=== PATIENT | male | born 1990 | race Caucasian/White ===

== ENCOUNTER → 2020-03-18 12:40 | Outpatient (CLI) | payer OTHER, SELFPAY ==
--- NOTE | 2020-03-18 12:46 | XR_ITS ---
PROCEDURE: XR SHOULDER LT MIN 2V CLINICAL INDICATION: left shoulder pain COMPARISON: No exams were available for comparison FINDINGS: There is an ununited fracture involving the distal shaft of the clavicle. There is mild inferior displacement and inferior angulation of the distal fracture fragment. The glenohumeral joint has an unremarkable appearance. 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
== END ==
PROVIDERS: Visit Provider Orthopaedic Surgery
DX: M25.512 Pain in left shoulder (principal)
CPT/HCPCS: 73030

== ENCOUNTER 2020-05-21 18:37 | Emergency (ER) | payer OTHER, SELFPAY ==
[2020-05-21 18:49] VITALS: PULSE 80; RESP 16; TEMP 36.9; O2SAT 98; BMI 25.0
--- NOTE | 2020-05-21 19:12 | HMH.EDUTC ---
[facility] [place] Disposition Clinical Impression: Viral syndrome Disposition: Home, Self-Care Condition on Discharge: Good Instructions: DI for Viral Syndrome, Preventing the Spread of Coronavirus Discharge Instructions Additional Instructions: Drink plenty of fluids. Take tylenol or ibuprofen for pain or fever. Take the medications as directed. Follow up with your regular doctor. GO TO THE ER FOR ANY WORSENING SYMPTOMS FOLLOW THE DIRECTIONS ON THE COVID-19 HAND OUT THAT WE GAVE YOU REGARDING SELF-ISOLATION UNTIL YOU KNOW YOUR COVID-19 RESULTS Referrals: PCP,No [Primary Care Provider] - Forms: Work/School Release Time of Disposition: 19:16 Medical Decision Making - Medical Records Medical records reviewed: No: I reviewed the patient's medical records. - Kwadwo Inquiry Pt receiving controlled substance: No Vital Signs: 05/21/20 18:49 Temperature 98.5 F Temperature Source Oral Pulse Rate [Right] 80 Respiratory Rate 16 02 Sat by Pulse Oximetry 98 Oxygen Delivery Method Room Air Orders (Tests/Meds): ORDERS Category Date Time Status SARS-CoV-2, MAX Stat Lab 05/21/20 19:00 Ordered [facility] [place] HPI - General Stated complaint: headache shortness of breath, chest tightness Time Seen by Provider: 05/21/20 19:12 Limitations: No Limitations Description of Symptoms (Recalled from Triage Doc. by RN): pt c/o having a headache and advises he has been working out in the heat the past couple of days HEENT Symptoms (Recalled from RN notes): No Resp Symptoms (Recalled from RN notes): No Skin Symptoms (Recalled from RN notes): No MS Symptoms (Recalled from RN notes): No Functional Status (Recalled from RN notes): na - History of Present Illness Provider Complaint: He c/o feeling fatigued and mildly short of breath since yesterday. He denies any history of asthma. He states that he was working and got really hot yesterday and started feeling like this. Since then he has felt better. He is not sure if he has been exposed to COVID-19. - Related Data Home Medications Medication Instructions Recorded Confirmed No Known Home Medications 01/01/20 03/19/20 Allergies Allergy/AdvReac Type Severity Reaction Status Date / Time No Known Allergies Allergy Verified 03/19/20 10:21 - Worker's Comp Is this a Worker's Comp case?: No [facility] History - Hepatitis A Screen Drug use history?: No High risk sexual behaviors?: No History of sexually transmitted infection?: No Currently employed?: No Childcare worker?: No Do you have indoor plumbing?: Yes Do you have electricity?: Yes Attestation statement:: This patient has been screened for Hepatitis A risk factors. I have reviewed the patient's past medical history: Yes Medical History: Reports:: Anxiety, Depression Other Medical History: Reports: Other Other Surgeries: Yes: No Previous Surgery - Social History Smoking Status: Current every day smoker Tobacco Type: e-cigarettes # Packs/Day (cigarettes): 1 Alcohol Intake: never Occupational Status: employed Housing: house Household Members: spouse, children - Psychiatric History Pschychiatric History:: Reports:: Anxiety, Depression Family Hx:: No significant family history ROS Obtained: Yes All systems reviewed & no additional complaints - Constitutional Constitutional: Denies chills, Denies fever(s), Denies poor appetite, Reports malaise - Eyes Eyes: Denies eye discharge - ENT Ears, Nose, Mouth, and Throat: Denies dizziness, Denies otalgia, Denies sore throat - Cardiovascular Cardiovascular: Denies system reviewed and no additional complaints, except as docu - Respiratory Respiratory: Yes chest congestion, Yes cough, No dyspnea, No coughing up blood, No stridor, No wheezing - Gastrointestinal Gastrointestingal: Reports: nausea. Denies: abdominal pain, diarrhea, vomiting Physical Exam - General General appearance: alert, in no apparent distress - Head Head exam: atrauma
[2020-05-21 19:22] VITALS: BP 0/0; PULSE 85; RESP 16; TEMP 37; O2SAT 98
[2020-05-23 13:59] LABS: Covid-19 Nasal PCR Sendout Lex Not Detected
== END 2020-05-21 19:24 | disposition home or self-care (01) ==
PROVIDERS: Emergency Provider Nurse Practitioner Family
DX: B34.9 Viral infection, unspecified (principal); Z03.818 Encounter for observation for suspected exposure to other biological agents ruled out; F17.210 Nicotine dependence, cigarettes, uncomplicated; F41.8 Other specified anxiety disorders
CPT/HCPCS: 99201; U0004

== ENCOUNTER 2020-09-11 17:35 | Emergency (ER) | payer OTHER, SELFPAY ==
[2020-09-11 18:02] VITALS: BP 148/87; PULSE 93; RESP 14; TEMP 36.9; O2SAT 97; BMI 25.7
--- NOTE | 2020-09-11 18:15 | HMH.EDUTC ---
[facility] [place] Disposition Clinical Impression: Exposure to COVID-19 virus, Viral syndrome Disposition: Home, Self-Care Condition on Discharge: Good Instructions: Preventing the Spread of Coronavirus Discharge Instructions Additional Instructions: Drink plenty of fluids. Take tylenol for pain or fever. Take the medications as directed. Follow up with your regular doctor. GO TO THE ER FOR ANY WORSENING SYMPTOMS The vistiril (hydroxyzine) is for your anxiety. It will make you drowsy so don't drive after taking it. Prescriptions: hydrOXYzine pamoate [Vistaril 25mg capsule] 25 mg PO Q6HP PRN #20 cap PRN Reason: Anxiety Transmission Status: Received by [id number] Azithromycin [Z-Alan 250mg Tab*] 250 mg PO UD DOSE PK #6 tab Transmission Status: Received by [id number] Referrals: Marichuy Flores PA [Primary Care Provider] - Forms: Work/School Release Time of Disposition: 18:20 Medical Decision Making - Medical Records Medical records reviewed: No: I reviewed the patient's medical records. - Kwadwo Inquiry Pt receiving controlled substance: No Vital Signs: 09/11/20 18:02 Temperature 98.4 F Temperature Source Oral Pulse Rate [Radial] 93 H Respiratory Rate 14 Blood Pressure [Right Arm] 148/87 H Blood Pressure Mean [Right Arm] 107 Blood Pressure Source [Right Arm] Automatic Cuff Blood Pressure Position [Right Arm] Sitting 02 Sat by Pulse Oximetry 97 Oxygen Delivery Method Room Air Orders (Tests/Meds): ORDERS Category Date Time Status Covid-19 Nasal PCR ([facility]) Routine Lab 09/11/20 17:50 Received [facility] [place] HPI - General Stated complaint: wants Covid test,Sore throat,cough,weakness,Abd Pa Time Seen by Provider: 09/11/20 18:18 Mode of Arrival: Ambulatory Source of Information: Patient Limitations: No Limitations Description of Symptoms (Recalled from Triage Doc. by RN): cough, sore throat, abd pain, started 4-5 days ago. HEENT Symptoms (Recalled from RN notes): Yes Resp Symptoms (Recalled from RN notes): No Skin Symptoms (Recalled from RN notes): No MS Symptoms (Recalled from RN notes): No Functional Status (Recalled from RN notes): wnl - History of Present Illness Provider Complaint: He states that for the past 3 days he has had a scratchy sore throat, fatigue, weakness and a dry cough. He was exposed to covid about 6 days ago by his coworker. He also states that over the past 3 days he has been very anxious. He has been unable to sleep. - Related Data Previous Rx's Medication Instructions Recorded Azithromycin [Z-Alan 250mg Tab*] 250 mg PO UD DOSE PK #6 tab 09/11/20 hydrOXYzine pamoate [Vistaril 25mg 25 mg PO Q6HP PRN #20 cap 09/11/20 capsule] Allergies Allergy/AdvReac Type Severity Reaction Status Date / Time No Known Allergies Allergy Verified 03/19/20 10:21 - Worker's Comp Is this a Worker's Comp case?: No [facility] History - Hepatitis A Screen Drug use history?: Yes High risk sexual behaviors?: No History of sexually transmitted infection?: No Currently employed?: No Childcare worker?: No Do you have indoor plumbing?: Yes Do you have electricity?: Yes Attestation statement:: This patient has been screened for Hepatitis A risk factors. I have reviewed the patient's past medical history: Yes Medical History: Reports:: Anxiety, Depression Other Medical History: Reports: Other Other Surgeries: Yes: No Previous Surgery - Social History Smoking Status: Current every day smoker Tobacco Type: cigarettes # Packs/Day (cigarettes): 1 Alcohol Intake: never Substance Use Type: marijuana Last Used Substance: days (ago) Occupational Status: other Housing: house Household Members: spouse, children - Psychiatric History Pschychiatric History:: Reports:: Anxiety, Depression Family Hx:: No significant family history ROS Obtained: Yes All systems reviewed & no additional complaints - Constitutional Constitutional: Elmo Farmer
[2020-09-11 18:38] VITALS: BP 148/87; PULSE 93; RESP 14; TEMP 36.9; O2SAT 97
== END 2020-09-11 18:39 | disposition home or self-care (01) ==
PROVIDERS: Emergency Provider Nurse Practitioner Family; PCP Physician Assistant
DX: Z20.828 Contact with and (suspected) exposure to other viral communicable diseases (principal); B34.9 Viral infection, unspecified; R10.9 Unspecified abdominal pain; F41.8 Other specified anxiety disorders; F17.210 Nicotine dependence, cigarettes, uncomplicated; F12.10 Cannabis abuse, uncomplicated
CPT/HCPCS: 99201; U0003

== ENCOUNTER 2020-10-25 17:34 | Emergency (ER) | payer OTHER, SELFPAY ==
[2020-10-25 17:43] VITALS: BP 118/66; PULSE 68; RESP 18; TEMP 36.7; O2SAT 97; BMI 25.7
--- NOTE | 2020-10-25 17:44 | ED_ITS ---
[facility] [place] Impression: Exposure to COVID-19 virus Disposition: Home, Self-Care Condition on Discharge: Good Instructions: Preventing the Spread of Coronavirus Discharge Instructions Additional Instructions: You have been tested for COVID19. Please isolate yourself as if you are positive until test results received. Based on your daughter's positive test, you should quarantine for at least 7 days with a second negative test on the 5th or 6th day following exposure. Referrals: PCP,No [Primary Care Provider] - Forms: Work/School Release Time of Disposition: 17:49 Medical Decision Making - Kwadwo Inquiry Pt receiving controlled substance: No [facility] [place] - General Stated complaint: Covid test Time Seen by Provider: 10/25/20 17:44 - History of Present Illness Provider Complaint: Daughter tested positive for COVID19 yesterday. Needs COVID19 testing. Denies symptoms currently. Onset (ago): day(s) (1) Relieving factors: none Exacerbating factors: none Associated symptoms: denies other symptoms Treatments prior to arrival: none - Related Data Previous Rx's Medication Instructions Recorded Azithromycin [Z-Alan 250mg Tab*] 250 mg PO UD DOSE PK #6 tab 09/11/20 hydrOXYzine pamoate [Vistaril 25mg 25 mg PO Q6HP PRN #20 cap 09/11/20 capsule] Allergies Allergy/AdvReac Type Severity Reaction Status Date / Time No Known Allergies Allergy Verified 03/19/20 10:21 [facility] History - Hepatitis A Screen Attestation statement:: This patient has been screened for Hepatitis A risk factors. I have reviewed the patient's past medical history: Yes Medical History: Reports:: Anxiety, Depression Other Medical History: Reports: Other Other Surgeries: Yes: No Previous Surgery - Social History Smoking Status: Current every day smoker Tobacco Type: cigarettes # Packs/Day (cigarettes): 1 Alcohol Intake: never Substance Use Type: marijuana Occupational Status: other Housing: house Household Members: spouse, children - Psychiatric History Pschychiatric History:: Reports:: Anxiety, Depression Family Hx:: No significant family history ROS Obtained: Yes All systems reviewed & no additional complaints Physical Exam - General General appearance: alert, in no apparent distress - Head Head exam: normocephalic - Eye Eye exam: Present: PERRL - ENT ENT exam: Present: normal oropharynx, TM's normal bilaterally - Neck Neck exam: Present: normal inspection. Absent: lymphadenopathy - Chest Chest inspection: Present: normal inspection - Respiratory Respiratory exam: Present: normal lung sounds bilaterally - Cardiovascular Cardiovascular exam: Present: regular rate, normal rhythm - Neurological Exam Neurological exam: Present: alert, oriented X3 - Psychiatric Psychiatric exam: Present: normal affect, normal mood - Skin Skin exam: Present: warm, dry
[2020-10-25 17:54] VITALS: BP 118/66; PULSE 68; RESP 18; TEMP 36.7; O2SAT 97
== END 2020-10-25 17:55 | disposition home or self-care (01) ==
PROVIDERS: Emergency Provider Physician Assistant
DX: Z20.828 Contact with and (suspected) exposure to other viral communicable diseases (principal); F17.210 Nicotine dependence, cigarettes, uncomplicated; F41.8 Other specified anxiety disorders
CPT/HCPCS: 99201; U0003

== ENCOUNTER 2021-03-25 13:21 | Emergency (ER) | payer OTHER, SELFPAY ==
[2021-03-25 13:27] VITALS: BP 121/73; PULSE 61; RESP 14; TEMP 36.7; O2SAT 97; BMI 25.0
--- NOTE | 2021-03-25 14:14 | HMH.EDUTC ---
[facility] [place] Disposition Clinical Impression: Sinusitis Qualifiers: Sinusitis location: unspecified location Chronicity: acute Recurrence: non-recurrent Qualified Code(s): J01.90 - Acute sinusitis, unspecified Disposition: Home, Self-Care Condition on Discharge: Good Instructions: DI for Sinusitis Additional Instructions: Drink plenty of fluids. Take tylenol or ibuprofen for pain or fever. Take the medications as directed. Follow up with your regular doctor. GO TO THE ER FOR ANY WORSENING SYMPTOMS Prescriptions: Brompheniramine/Pseudoephed/Dm [Bromfed Dm Cough Syrup] 5 ml PO Q6HP PRN #240 syrup PRN Reason: Cough Transmission Status: Received by [facility] Ondansetron [Zofran 4mg ODT] 4 mg PO Q8HP PRN #12 tab.rapdis PRN Reason: Nausea Transmission Status: Received by [facility] Azithromycin [Z-Alan 250mg Tab*] 250 mg PO UD DOSE PK #6 tab Transmission Status: Received by [facility] Referrals: Provider,Referral, [Primary Care Provider] - Time of Disposition: 14:20 Medical Decision Making - Medical Records Medical records reviewed: No: I reviewed the patient's medical records. - Kwadwo Inquiry Pt receiving controlled substance: No Vital Signs: 03/25/21 13:27 03/25/21 14:21 Temperature 98.1 F 98 F Temperature Source Oral Pulse Rate 59 L Pulse Rate [Right] 61 Respiratory Rate 14 16 Blood Pressure 125/72 Blood Pressure [Right Arm] 121/73 Blood Pressure Mean [Right Arm] 89 Blood Pressure Source [Right Arm] Automatic Cuff Blood Pressure Position [Right Arm] Sitting 02 Sat by Pulse Oximetry 97 Oxygen Delivery Method Room Air [facility] [place] HPI - General Stated complaint: sinus infection possibly Time Seen by Provider: 03/25/21 14:14 Mode of Arrival: Ambulatory Source of Information: Patient Limitations: No Limitations Description of Symptoms (Recalled from Triage Doc. by RN): pt believes he has a sinus infection, he is having yellow/green snot and sinus pressure. HEENT Symptoms (Recalled from RN notes): Yes (sinus pressure and yellow/green snot) Resp Symptoms (Recalled from RN notes): No Skin Symptoms (Recalled from RN notes): No MS Symptoms (Recalled from RN notes): No Functional Status (Recalled from RN notes): na - History of Present Illness Provider Complaint: He states that for the past 2 weeks he has had sinus congestion, ear pain and sore throat. He has also had a dry cough. He denies any fever/chills/body aches. He denies any covid-19 exposure. - Related Data Previous Rx's Medication Instructions Recorded Azithromycin [Z-Alan 250mg Tab*] 250 mg PO UD DOSE PK #6 tab 09/11/20 hydrOXYzine pamoate [Vistaril 25mg 25 mg PO Q6HP PRN #20 cap 09/11/20 capsule] Azithromycin [Z-Alan 250mg Tab*] 250 mg PO UD DOSE PK #6 tab 03/25/21 Brompheniramine/Pseudoephed/Dm 5 ml PO Q6HP PRN #240 syrup 03/25/21 [Bromfed Dm Cough Syrup] Ondansetron [Zofran 4mg ODT] 4 mg PO Q8HP PRN #12 tab.rapdis 03/25/21 Allergies Allergy/AdvReac Type Severity Reaction Status Date / Time No Known Allergies Allergy Verified 03/25/21 13:35 - Worker's Comp Is this a Worker's Comp case?: No [facility] History - Hepatitis A Screen Drug use history?: No High risk sexual behaviors?: No History of sexually transmitted infection?: No Currently employed?: No Childcare worker?: No Do you have indoor plumbing?: Yes Do you have electricity?: Yes Attestation statement:: This patient has been screened for Hepatitis A risk factors. I have reviewed the patient's past medical history: Yes Medical History: Reports:: Anxiety, Depression Other Medical History: Reports: Other Other Surgeries: Yes: No Previous Surgery - Social History Smoking Status: Current every day smoker Tobacco Type: cigarettes # Packs/Day (cigarettes): 1 Alcohol Intake: never Substance Use Type: marijuana Occupational Status: other Housing: house Household Members: spouse, children - Psychiatric H
[2021-03-25 14:21] VITALS: BP 125/72; PULSE 59; RESP 16; TEMP 36.6
== END 2021-03-25 14:22 | disposition home or self-care (01) ==
PROVIDERS: Emergency Provider Nurse Practitioner Family
DX: J01.90 Acute sinusitis, unspecified (principal); F41.8 Other specified anxiety disorders; F17.210 Nicotine dependence, cigarettes, uncomplicated
CPT/HCPCS: 99202; G0463

== ENCOUNTER 2021-05-13 20:17 | Emergency (ER) | payer OTHER, SELFPAY ==
--- NOTE | 2021-05-13 20:26 | XR_ITS ---
PROCEDURE INFORMATION: Exam: XR Right Foot Exam date and time: 05/13/2021 8:26 PM Age: 30 years old Clinical indication: Injury or trauma; Sprain or strain; Right great toe and right first toe; Injury date: 05/13/2021; Injury details: Hurt toes doing martial arts; Patient HX: Pain in toes TECHNIQUE: Imaging protocol: XR Right foot. Views: 3 or more views. COMPARISON: No relevant prior studies available. FINDINGS: Bones/joints: There is a nondisplaced fracture at the base of the 1st proximal phalanx. It is intra-articular. No malalignment. Soft tissues: Normal. IMPRESSION: Great toe fracture as above
[2021-05-13 20:50] VITALS: BP 125/66; PULSE 64; RESP 16; TEMP 36.6; O2SAT 99; BMI 25.0
[2021-05-13 21:27] VITALS: BP 125/66; PULSE 64; RESP 16; TEMP 36.6; O2SAT 99
--- NOTE | 2021-05-13 21:29 | HMH.EDUTC ---
[facility] [place] Dis[place] Clinical Impression: Fractured great toe Qualifiers: Encounter type: initial encounter Fracture type: closed Phalanx: proximal Fracture alignment: nondisplaced Laterality: right Qualified Code(s): S92.414A - Nondisplaced fracture of proximal phalanx of right great toe, initial encounter for closed fracture Disposition: Home, Self-Care Condition on Discharge: Good Instructions: How to Use Crutches, How To Perform RICE (Rest, Ice, Compress, Elevate) Additional Instructions: *RICE, Rest the extremity, Ice 15-20 minutes 3-4 times daily, Compress- wear the jorge wrap as discussed as much as possible to help reduce swelling and pain, Elevate the extremity when at rest *Jorge wrap/post op shoe is for support and help control swelling, Be sure that is not to tight but not to loose either *Elevate when resting Use crutches to ambulate and get around *Ibuprofen 600-800mg every 6-8 hours as needed for pain an inflammation. If need something more can take Tylenol in between doses of Ibuprofen to help Immediately follow up with your family doctor for new or worsening of symptoms, or no noticeable improvement over the next 3-5 days Follow up with your Family Doctor Follow up with Podiatry or Orthopedics for further evaluation and treatment Referrals: Provider,Gómez, [Primary Care Provider] - Jewell Allison DPM [Staff Physician] - David Thornton MD [Staff Physician] - Time of Disposition: 21:38 Medical Decision Making - Kwadwo Inquiry Pt receiving controlled substance: No Kwadwo was queried for this patient: No Vital Signs: 05/13/21 20:50 05/13/21 21:27 Temperature 97.8 F 97.8 F Temperature Source Oral Pulse Rate 64 Pulse Rate [Right Brachial] 64 Respiratory Rate 16 16 Blood Pressure 125/66 Blood Pressure [Right Arm] 125/66 Blood Pressure Mean [Right Arm] 85 Blood Pressure Source [Right Arm] Automatic Cuff Blood Pressure Position [Right Arm] Sitting 02 Sat by Pulse Oximetry 99 Oxygen Delivery Method Room Air - Radiology Data #1 Image(s): Foot/Toes Image Reviewed: Yes I have reviewed radiologist's interpretation There is a nondisplaced fracture at the base of the 1st proximal phalanx. It is intra-articular. No malalignment. Soft tissues: Normal. IMPRESSION: Great toe fracture as above [facility] [place] HPI - General Stated complaint: [id number]@1800 r foot injury Time Seen by Provider: 05/13/21 21:29 Mode of Arrival: Ambulatory Source of Information: Patient Limitations: No Limitations Description of Symptoms (Recalled from Triage Doc. by RN): PATIENT C/O INJURY TO RIGHT FOOT YESTERDAY WHILE DOING MMA HEENT Symptoms (Recalled from RN notes): No Resp Symptoms (Recalled from RN notes): No Skin Symptoms (Recalled from RN notes): No MS Symptoms (Recalled from RN notes): Yes Functional Status (Recalled from RN notes): WNL - History of Present Illness Provider Complaint: Patient states that he was in MMA class when he kicked and felt a pop in his right great toe States that it wasnt hurting so he continued with class States that after class he was having pain when he would walk and hurt in his big toe so he come in to get checked - Related Data Previous Rx's Medication Instructions Recorded Azithromycin [Z-Alan 250mg Tab*] 250 mg PO UD DOSE PK #6 tab 09/11/20 hydrOXYzine pamoate [Vistaril 25mg 25 mg PO Q6HP PRN #20 cap 09/11/20 capsule] Azithromycin [Z-Alan 250mg Tab*] 250 mg PO UD DOSE PK #6 tab 03/25/21 Brompheniramine/Pseudoephed/Dm 5 ml PO Q6HP PRN #240 syrup 03/25/21 [Bromfed Dm Cough Syrup] Ondansetron [Zofran 4mg ODT] 4 mg PO Q8HP PRN #12 tab.rapdis 03/25/21 Allergies Allergy/AdvReac Type Severity Reaction Status Date / Time No Known Allergies Allergy Verified 03/25/21 13:35 - Worker's Comp Is this a Worker's Comp case?: No [facility] History - Hepatitis A Screen Drug use history?: No High risk sexual behaviors?: No History of sexually transmitted infect
== END 2021-05-13 21:43 | disposition home or self-care (01) ==
PROVIDERS: Emergency Provider Nurse Practitioner
DX: S92.414A Nondisplaced fracture of proximal phalanx of right great toe, initial encounter for closed fracture (principal); X50.3XXA Overexertion from repetitive movements, initial encounter; Y93.59 Activity, other involving other sports and athletics played individually; Y92.39 Other specified sports and athletic area as the place of occurrence of the external cause; F41.8 Other specified anxiety disorders; F17.210 Nicotine dependence, cigarettes, uncomplicated; Z79.899 Other long term (current) drug therapy
CPT/HCPCS: 73630; 99202; G0463

== ENCOUNTER 2022-01-29 19:42 | Emergency (ER) | payer OTHER, SELFPAY ==
[2022-01-29 19:42] VITALS: BP 122/86; PULSE 74; RESP 20; TEMP 36.8; O2SAT 100; BMI 27.8
[2022-01-29 20:12] VITALS: BP 122/86; PULSE 65; O2SAT 97
--- NOTE | 2022-01-29 20:17 | CT_ITS ---
PROCEDURE INFORMATION: Exam: CT Abdomen And Pelvis With Contrast Exam date and time: 01/29/2022 8:52 PM Age: 31 years old Clinical indication: Abdominal pain; Generalized; Additional info: Abd pain TECHNIQUE: Imaging protocol: Computed tomography of the abdomen and pelvis with contrast. Radiation optimization: All CT scans at this facility use at least one of these dose optimization techniques: automated exposure control; mA and/or kV adjustment per patient size (includes targeted exams where dose is matched to clinical indication); or iterative reconstruction. Contrast material: ISOVUE; Contrast volume: 75 ml; Contrast route: IV; COMPARISON: CT ABDOMEN PELVIS W CON 09/05/2019 6:44 PM FINDINGS: Liver: Normal. No mass. Gallbladder and bile ducts: No calcified stones. No ductal dilation. Pancreas: Normal enhancement. No ductal dilation. Spleen: No splenomegaly. Adrenal glands: No mass. Kidneys and ureters: No hydronephrosis. Stomach and bowel: Mildly distended and equivocally thickened loops of small bowel distally extending into the pelvis measuring up to 2.6 cm in transverse dimension with trace adjacent fluid. Appendix: No evidence of appendicitis. Intraperitoneal space: No free air. No significant fluid collection. Vasculature: No abdominal aortic aneurysm. Lymph nodes: No enlarged lymph nodes. Urinary bladder: No acute abnormality. Reproductive: No acute abnormality. Bones/joints: No acute fracture. Soft tissues: No soft tissue swelling. IMPRESSION: Mildly distended and equivocally thickened loops of small bowel distally extending into the pelvis measuring up to 2.6 cm in transverse dimension with trace adjacent fluid suggesting enteritis and potentially developing partial obstruction. Clinical correlation recommended.
[2022-01-29 20:27] LABS: Basophils # 0.2 K/mm3 (0-0.2); Basophils % 1.6 % (0.1-2.0); Eosinophils # 0.1 K/mm3 (0.0-0.4); Eosinophils % 1.5 % (0.1-12.0); Lymphocytes # 2.4 K/mm3 (0.7-4.5); Lymphocytes % 25.5 % (10-50); Mean Corpuscular Hemoglobin 30.5 pg (27.0-31.2); Mean Corpuscular Volume 89.7 fl (80-94); Mean Platelet Volume 8.4 fl (7.4-10.4); Monocytes # 0.6 K/mm3 (0.1-1.0); Monocytes % 6.3 % (1.7-9.3); Neutrophils # 6.2 K/mm3 (1.8-7.8); Platelet Count 133 K/mm3 (142-424); Red Blood Count 5.24 M/mm3 (4.60-6.20); Red Cell Distribution Width 13.6 % (11.5-17.5); White Blood Count 9.5 K/mm3 (4.8-10.8)
[2022-01-29 20:27] LABS: Microscopic, Urine URINE MICROSCOPIC (MICROSCOPIC)
[2022-01-29 20:29] LABS: Appearance,Urine CLEAR (Clear); Bilirubin,Urine Negative (Negative); Blood, Urine Negative (Negative); Color,Urine YELLOW (Yellow); Glucose,Urine (UA) Negative (Negative); Ketones,Urine Negative (Negative); Leukocyte Esterase,Urine Negative (Negative); Nitrate,Urine Negative (Negative); PH,Urine 7.5 (5.0-8.5); Protein,Urine Negative (Negative); Urobilinogen,Urine 0.2 EU/dl (0.2)
[2022-01-29 20:30] VITALS: BP 123/72; PULSE 74; O2SAT 97
[2022-01-29 20:31] LABS: Chloride 106 mmol/L (98-107); Potassium 3.6 mmoL/L (3.5-5.1); Sodium 139 mmol/L (136-145)
[2022-01-29 20:33] LABS: Amylase 67 U/L (30-110); Blood Urea Nitrogen 13 mg/dl (9-20); Creatinine Clearance Estimated 158 mL/min (50-200); Estimated Glomerular Filt Rate 99 ml/min (>60); GFR (African American) 120 ML/MIN (>60)
[2022-01-29 20:34] LABS: Alanine Aminotransferase 35 U/L (12-78); Albumin Level 4.3 g/dl (3.5-5.0); Albumin/Globulin Ratio 1.4 (1.1-1.8); Alkaline Phosphatase 69 U/L (38-126); Anion Gap 9.6 mEq/L (5-15); Aspartate Amino Transferase 35 U/L (17-59); Bilirubin,Total 0.5 mg/dl (0.2-1.3); Calcium 8.8 mg/dl (8.4-10.2); Carbon Dioxide 27 mmol/L (22.0-30.0); Glucose 95 mg/dl (74-100); Lipase 66 U/L (23-300); Total Protein,Serum 7.3 g/dl (6.3-8.2)
[2022-01-29 20:37] LABS: Squamous Epithelial Cell,Urine Occasional #/hpf (0-5); WBC,Urine Occasional #/hpf (0-3)
--- NOTE | 2022-01-29 21:35 | HMH.EDNVD ---
ED Disposition Clinical Impression: Enteritis Disposition: Home, Self-Care Condition on Discharge: Good Instructions: DI for Enteritis Additional Instructions: fluids and see pcp if needed Referrals: Provider,Referral, [Primary Care Provider] - - Critical Care Critical Care Time: No Attestation: On 01/29/22, the high probability of a clinically significant, sudden or life threatening deterioration of the following system(s) required my full and direct attention, intervention and personal management. The time I documented below is in addition to time spent performing reported procedures but includes the following listed in this critical care notation. Medical Decision Making - Medical Records Medical records reviewed: Yes: I reviewed the patient's medical records. - Kwadwo Inquiry Pt receiving controlled substance: No Vital Signs: 01/29/22 19:42 01/29/22 20:12 01/29/22 20:30 Temperature 98.2 F Temperature Source Oral Pulse Rate 65 74 Pulse Rate [Right Radial] 74 Respiratory Rate 20 Blood Pressure 122/86 123/72 Blood Pressure [Right Arm] 122/86 Blood Pressure Mean [Right Arm] 98 Blood Pressure Source [Right Arm] Automatic Cuff Blood Pressure Position [Right Arm] Supine 02 Sat by Pulse Oximetry 100 97 97 Oxygen Delivery Method Room Air 01/29/22 22:14 Temperature Temperature Source Pulse Rate 63 Pulse Rate [Right Radial] Respiratory Rate Blood Pressure 105/61 L Blood Pressure [Right Arm] Blood Pressure Mean [Right Arm] Blood Pressure Source [Right Arm] Blood Pressure Position [Right Arm] 02 Sat by Pulse Oximetry 99 Oxygen Delivery Method - Lab Data Lab results reviewed: Yes: I reviewed the patient's lab results. Lab Results 01/29/22 19:50: Urine Color Yellow, Urine Appearance Clear, Urine pH 7.5, Ur Specific [place] 1.020, Urine Protein Negative, Urine Glucose (UA) Negative, Urine Ketones Negative, Urine Blood Negative, Urine Nitrate Negative, Urine Bilirubin Negative, Urine Urobilinogen 0.2, Ur Leukocyte Esterase Negative, Urine RBC None, Urine WBC Occasional, Ur Squamous Epith Cells Occasional, Urine Bacteria None 01/29/22 20:00: WBC 9.5, RBC 5.24, Hgb 16.0, Hct 47.0, MCV 89.7, MCH 30.5, MCHC 34.0, RDW 13.6, Plt Count 133 L, MPV 8.4, Neut % (Auto) 65.0, Lymph % (Auto) 25.5, [place] % (Auto) 6.3, Eos % (Auto) 1.5, Baso % (Auto) 1.6, Neut # (Auto) 6.2, Lymph # (Auto) 2.4, [place] # (Auto) 0.6, Eos # (Auto) 0.1, Baso # (Auto) 0.2 01/29/22 20:00: Sodium 139, Potassium 3.6, Chloride 106, Carbon Dioxide 27, Anion Gap 9.6, BUN 13, Creatinine 0.90, Estimated Creat Clear 158, Estimated GFR 99, Est GFR ( Amer) 120, Glucose 95, Calcium 8.8, Total Bilirubin 0.5, AST 35, ALT 35, Alkaline Phosphatase 69, Total Protein 7.3, Albumin 4.3, Globulin 3.0, Albumin/Globulin Ratio 1.4, Amylase 67, Lipase 66 Result diagrams: 01/29/22 20:00 01/29/22 20:00 Orders (Tests/Meds): ED MEDICATIONS Generic Name Dose Route Start Last Admin Trade Name Freq PRN Reason Stop Dose Admin Sodium Chloride 1,000 mls @ 999 mls/hr 01/29/22 22:00 01/29/22 21:48 Sod Chlor 0.9% 1000ml Bag IV 01/29/22 23:00 999 mls/hr .Q1H1M SHANNAN Administration Sodium Chloride 8 ml 01/29/22 20:20 Sodium Chloride 0.9% 10ml Vial IV 02/28/22 20:19 NEEDED PRN dilute pepcid Discontinued Medications Generic Name Dose Route Start Last Admin Trade Name Freq PRN Reason Stop Dose Admin Famotidine 20 mg 01/29/22 20:20 01/29/22 20:37 Famotidine 20mg/2ml Vial IV 01/29/22 20:21 20 mg ONCE ONE Administration Sodium Chloride 1,000 mls @ 999 mls/hr 01/29/22 20:30 01/29/22 20:37 Sod Chlor 0.9% 1000ml Bag IV 01/29/22 21:30 999 mls/hr .Q1H1M SHANNAN Administration Iopamidol 75 ml 01/29/22 21:01 01/29/22 21:02 Iopamidol-370 (76%);100ml Bottle IV 01/29/22 21:02 75 ml ONCE ONE Administration Ketorolac Tromethamine 30 mg 01/29/22 20:20 01/29/22 20:44 Ketorolac 30mg
[2022-01-29 22:14] VITALS: BP 105/61; PULSE 63; O2SAT 99
[2022-01-29 23:05] VITALS: BP 106/63; PULSE 79; RESP 18; TEMP 36.8; O2SAT 99
== END 2022-01-29 23:12 | disposition home or self-care (01) ==
PROVIDERS: Emergency Provider Emergency Medicine
DX: K52.9 Noninfective gastroenteritis and colitis, unspecified (principal); F32.A Depression, unspecified; F41.9 Anxiety disorder, unspecified; F17.210 Nicotine dependence, cigarettes, uncomplicated
CPT/HCPCS: 74177; 80053; 81001; 82150; 83690; 85025; 96361; 96365; 96366; 96374; 96375; 99285; J2405; Q9967

== ENCOUNTER 2022-06-22 06:47 | Emergency (ER) | payer OTHER, SELFPAY ==
[2022-06-22 06:50] VITALS: BP 155/81; PULSE 65; RESP 17; TEMP 36.8; O2SAT 99; BMI 25.0
[2022-06-22 07:30] VITALS: BP 138/84; PULSE 62; O2SAT 97
[2022-06-22 08:00] VITALS: BP 144/86; PULSE 62; O2SAT 98
[2022-06-22 08:30] VITALS: BP 144/88; PULSE 54; O2SAT 98
--- NOTE | 2022-06-22 09:31 | CT_ITS ---
PROCEDURE INFORMATION: Exam: CT Chest Without Contrast; Diagnostic Exam date and time: 06/22/2022 7:11 AM Age: 31 years old Clinical indication: Intercostal; Patient HX: Rib pain TECHNIQUE: Imaging protocol: Diagnostic computed tomography of the chest without contrast. Radiation optimization: All CT scans at this facility use at least one of these dose optimization techniques: automated exposure control; mA and/or kV adjustment per patient size (includes targeted exams where dose is matched to clinical indication); or iterative reconstruction. COMPARISON: No relevant prior studies available. FINDINGS: Lungs: There is a 6 mm right middle lobe subpleural nodule on series 3, image 56. There is a 5 mm subpleural nodule in the left upper lobe on series 3, image 16. Additional smaller nodules are seen. No focal airspace consolidation. Pleural spaces: Unremarkable. No pneumothorax. No pleural effusion. Heart: Coronary artery calcification is absent. Mediastinal space: Residual thymic tissue is seen in the anterior mediastinum. Lymph nodes: Numerous but small axillary lymph nodes are seen bilaterally. Vasculature: Unremarkable. No aortic aneurysm. Bones/joints: Unremarkable. No acute fracture. Soft tissues: Unremarkable. IMPRESSION: Multiple small pulmonary nodules are seen measuring up to 6 mm. If the patient does not have known cancer, follow up should be based on clinical information because of the low risk of cancer in this age group. (Reference: Rj) REFERENCES: Rj Joseph et al. Guidelines for Management of Incidental Pulmonary Nodules Detected on CT Images: From the Fleischner Society 2017. Radiology. 2017;284(1):228-243.
--- NOTE | 2022-06-22 09:37 | CT_ITS ---
FINAL REPORT TECHNIQUE: Pre-and postcontrast images of the abdomen were performed by computed tomography. Extensive 3-D reconstruction images were performed. A CTA was performed. This study was performed with techniques to keep radiation doses as low as reasonably achievable (ALARA). Individualized dose reduction techniques using automated exposure control or adjustment of mA and/or kV according to the patient's size were employed. CLINICAL HISTORY: LUQ pain COMPARISON: January 29, 2022 FINDINGS: ABDOMEN: The lung bases are clear. Precontrast images demonstrate no evidence of nephrolithiasis. No adrenal masses are identified. The liver, spleen and pancreas are unremarkable. PELVIS: There is no pelvic mass or inflammation. The urinary bladder is present. There is a large amount of stool is seen in the base of cecum. There are no abnormally dilated loops of bowel seen. CTA: The abdominal aorta is proper caliber. The SMA, celiac axis, and LOR[place]TA are patent. There is no significant stenosis or calcification. The renal arteries are patent bilaterally. IMPRESSION: No evidence of renal vascular hypertension or significant renal artery stenosis. Reviewed, Interpreted and Dictated by Darryn Garza MD Transcribed by Annalise Cr Authenticated and [facility]
--- NOTE | 2022-06-22 09:37 | CT_ITS ---
FINAL REPORT CLINICAL HISTORY: pleuritic pain L side FINDINGS: Thin section axial CT images of the chest were obtained with contrast. 3D reformatted images were also obtained. This study was performed with techniques to keep radiation doses as low as reasonably achievable (ALARA). Individualized dose reduction techniques using automated exposure control or adjustment of mA and/or kV according to the patient's size were employed. There is no evidence of pulmonary embolism. There is no evidence of thoracic aortic aneurysm or dissection. There is soft tissue in the anterior mediastinum probably related to residual thymic tissue. The mediastinal vasculature is well opacified. There is no pulmonary artery filling defects. There are multiple bilateral axillary lymph nodes. The individual nodes measure up to 1.5 cm bilaterally. The nodes are larger and more numerous than typically seen. There is no pneumothorax. The lung bases are clear. IMPRESSION: No evidence of pulmonary embolism. No mass or localized inflammatory process. Multiple bilateral axillary lymph nodes, larger and more numerous than typically seen. Reviewed, Interpreted and Dictated by Darryn Garza MD Transcribed by Annalise Cr Authenticated and [facility]
[2022-06-22 09:39] VITALS: BMI 25.0
--- NOTE | 2022-06-22 09:45 | PC.NURSE ---
IV established and blood sent to the lab
[2022-06-22 10:08] LABS: Alanine Aminotransferase 40 U/L (12-78); Albumin Level 4.3 g/dl (3.5-5.0); Albumin/Globulin Ratio 1.3 (1.1-1.8); Alkaline Phosphatase 73 U/L (38-126); Anion Gap 7.6 mEq/L (5-15); Aspartate Amino Transferase 120 U/L (17-59); Bilirubin,Total 0.2 mg/dl (0.2-1.3); Blood Urea Nitrogen 11 mg/dl (9-20); Calcium 9.5 mg/dl (8.4-10.2); Carbon Dioxide 30 mmol/L (22.0-30.0); Chloride 106 mmol/L (98-107); Creatinine Clearance Estimated 160 mL/min (50-200); Estimated Glomerular Filt Rate 114 ml/min (>60); GFR (African American) 137 ML/MIN (>60); Globulin 3.4 g/dL (1.3-3.2); Glucose 100 mg/dl (74-100); Potassium 4.6 mmoL/L (3.5-5.1); Sodium 139 mmol/L (136-145); Total Protein,Serum 7.7 g/dl (6.3-8.2)
[2022-06-22 10:10] LABS: Basophils # 0.1 K/mm3 (0-0.2); Basophils % 0.9 % (0.1-2.0); Eosinophils # 0.2 K/mm3 (0.0-0.4); Hemoglobin 15.6 g/dL (14.1-18.0); Lymphocytes # 2.4 K/mm3 (0.7-4.5); Lymphocytes % 38.6 % (10-50); Mean Corpuscular HGB Conc 31.8 g/dL (31.8-35.4); Mean Corpuscular Hemoglobin 29.6 pg (27.0-31.2); Mean Corpuscular Volume 92.9 fl (80-94); Mean Platelet Volume 8.3 fl (7.4-10.4); Monocytes # 0.4 K/mm3 (0.1-1.0); Monocytes % 6.7 % (1.7-9.3); Neutrophils # 3.1 K/mm3 (1.8-7.8); Neutrophils % 50.9 % (37.0-80.0); Platelet Count 161 K/mm3 (142-424); Red Blood Count 5.27 M/mm3 (4.60-6.20); Red Cell Distribution Width 13.5 % (11.5-17.5); White Blood Count 6.2 K/mm3 (4.8-10.8)
--- NOTE | 2022-06-22 10:20 | PC.NURSE ---
Late entry of triage per downtime procedures. Triage completed by SHELDON Kamara.
--- NOTE | 2022-06-22 10:45 | PC.NURSE ---
rounded on pt room. asked if pt had any needs. No needs at this time.
--- NOTE | 2022-06-22 12:30 | PC.NURSE ---
contacted radiology to check on status of CT reports, spoke with oscar, states she will have staff check on it and call me back
--- NOTE | 2022-06-22 12:40 | PC.NURSE ---
gave preliminary reports of CTA chest to ER MD at this time
--- NOTE | 2022-06-22 12:56 | HMH.EDGENADL ---
Discharge Plan Disposition Patient Disposition: Home, Self-Care Condition: Good Chief Complaint: PAIN Prescriptions Prescriptions: New ibuprofen 800 mg tablet 800 mg PO Q8HP PRN (Reason: moderate pain ) Qty: 15 0RF No Action azithromycin 250 MG tablet 250 mg PO UD DOSE PK Qty: 6 0RF Rx Instructions: Take two (2) tablets today, then one (1) tablet days #2 thru #5 epmcnreyljphjjx-flqaqxyxd-BZ 118 ML syrup 5 ml PO Q6HP PRN (Reason: Cough) Qty: 240 0RF ondansetron 4 MG tablet,disintegrating 4 mg PO Q8HP PRN (Reason: Nausea) Qty: 12 0RF azithromycin 250 MG tablet 250 mg PO UD DOSE PK Qty: 6 0RF Rx Instructions: Take two (2) tablets today, then one (1) tablet days #2 thru #5 hydroxyzine pamoate 25 MG capsule 25 mg PO Q6HP PRN (Reason: Anxiety) Qty: 20 0RF Referrals Referrals: Provider,Referral, MD [Primary Care Provider] - Enter time for follow up Activity Restrictions/Add. Instructions Additional Instructions/Restrictions: Ibuprofen as needed for pain. Follow-up with primary care provider if not improved in 4 to 5 days. Clinical Impressions Clinical Impression: Chest wall muscle strain Discharge ED Provider: Luiz Jolly Adult [facility] General Chief complaint: PAIN Stated complaint: left side pain Time Seen by Provider: 06/22/22 08:00 Mode of Arrival: Ambulatory Source of Information: Patient Limitations: No Limitations Description of Symptoms (Recalled from ER Triage Doc. by RN): pt to ed c/o left lower rib pain. 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 pt states he was kickboxing yesterday with a punching bag and started having left rib pain. pt reports the pain is worse on inspiration and movement. no known injury reported by pt. pt denies trauma or falls. Related Data Previous Rx's Medication Instructions Recorded azithromycin 250 mg tablet 250 mg PO UD DOSE PK #6 tabs 09/11/20 hydroxyzine pamoate 25 mg capsule 25 mg PO Q6HP PRN Anxiety #20 caps 09/11/20 azithromycin 250 mg tablet 250 mg PO UD DOSE PK #6 tabs 03/25/21 vahssskkmeqkkki-rgbvxlylcbzpnwa-RK 5 ml PO Q6HP PRN Cough ##240 03/25/21 2 mg-30 mg-10 mg/5 mL oral syrup ondansetron 4 mg disintegrating 4 mg PO Q8HP PRN Nausea ##12 03/25/21 tablet ibuprofen 800 mg tablet 800 mg PO Q8HP PRN moderate pain 06/22/22 #15 tabs Allergies Allergy/AdvReac Type Severity Reaction Status Date / Time No Known Allergies Allergy Verified 03/25/21 13:35 PFSH PFSH Social History Smoking Status: Never smoker second hand exposure: Yes alcohol intake: never substance use type: marijuana current occupational status: other household members: spouse and children housing: house ROS Obtained: Yes All systems reviewed & no additional complaints except as documented Physical Exam General General appearance: alert and in no apparent distress Respiratory Respiratory exam: Present normal lung sounds bilaterally; Absent respiratory distress, wheezes or accessory muscle use Cardiovascular Cardiovascular exam: Present regular rate and normal rhythm Neurological Exam Neurological exam: Present alert, oriented X3 and normal gait; Absent motor sensory deficit Medical Decision Making Kwadwo Inquiry Pt receiving controlled substance: No Vital Signs: 06/22/22 06:50 06/22/22 13:12 06/22/22 07:30 Temperature 98.2 F 98.2 F Temperature Source Oral Pulse Rate 52 L 62 Pulse Rate [Left Radial] 65 Respiratory Rate 17 16 Blood Pressure 136/86 138/84 Blood Pressure [Right Arm] 155/81 H Blood Pressure Mean [Right Arm] 105 Blood Pressure Source Automatic Cuff Blood Pressure Position Sitting Sitting 02 Sat by Pulse Oximetry 99 97 Oxygen Delivery Method Room Air Room Air Room Air 06/22/22 08:00 06/22/22 08:30 Temperature Temperature Source Pulse Rate 62 54 L Pulse Rate [Left Radial] Respiratory Rate Blood Pressure 144/86 H 144/88 H Blood Pressure [R
[2022-06-22 13:12] VITALS: BP 136/86; PULSE 52; RESP 16; TEMP 36.8; O2SAT 100
== END 2022-06-22 13:12 | disposition home or self-care (01) ==
PROVIDERS: Emergency Provider Emergency Medicine
DX: R07.89 Other chest pain (principal)
CPT/HCPCS: 71250; 71275; 74174; 80053; 85025; 99285; Q9967

== ENCOUNTER 2022-11-01 10:47 | Emergency (ER) | payer OTHER, SELFPAY ==
[2022-11-01 11:05] VITALS: BP 130/68; PULSE 71; RESP 19; TEMP 36.6; O2SAT 97; BMI 25.7
--- NOTE | 2022-11-01 11:12 | EXP.UTC ---
Discharge Plan Disposition Patient Disposition: Home, Self-Care Condition: Good Prescriptions Prescriptions: New benzonatate 100 mg capsule 100 mg PO TID PRN (Reason: cough) Qty: 30 0RF azithromycin [Zithromax Z-Alan] 250 mg tablet See Rx Instructions .ROUTE .COMPLEX 5 Days Qty: 6 0RF Rx Instructions: For 250 mg dose pack: take 500 mg today (day 1), then 250 mg for 4 days (days 2-5) methylprednisolone [Medrol (Alan)] 4 mg tablets,dose pack See Rx Instructions .Route .COMPLEX 6 Days Qty: 21 0RF Rx Instructions: taper pack; Referrals Follow up/Referrals: Perfecto Adam MD [Primary Care Provider] - See instructions Activity Restrictions/Add. Instructions Additional Instructions/Restrictions: *Monitor Temp, Over the counter Motrin or Tylenol as directed/as needed Tylenol every 4 hours and Motrin every 6 hours (as long as your family doctor has told you that you can take it) for fever or pain. and straight to ER if unable to lower temp less than 101.0 after medication given *Warm salt water gargles may help to soothe the throat *Throat Lozenges? *Warm fluids like tea with honey may help to soothe the throat? *Sleep elevated *Humidifier/Vaporizer Your throat swab was sent for culture. Those results are typically sent to your primary care. Be sure to follow up in 2-3 days with your family doctor/primary care physician if no improvement so they can review those result and treat if necessary. If you don?t have a primary care doctor, I recommend you get one but in the mean time, you will have to return to a walk in clinic Follow up IMMEDIATELY for new or worsening symptoms or no Noticeable improvement over the next 48-72 hours. 911 for difficulty breathing or swallowing Clinical Impressions Clinical Impression: Sinusitis Stand Alone Forms Stand Alone Forms: Work/School Release Instructions Patient Instructions: DI for Sinusitis, Sinusitis Discharge ED Provider: Leighann Camara [facility] [place] H[place] General Stated complaint: Persistant cough Time Seen by Provider: 11/01/22 11:05 History of Present Illness Provider Complaint: Patient states that he has been sick on and off for 2 weeks States that he has been having sore throat, cough, sinus congestion and drainage feels like it is running in the back of his throat and had a little fever yesterday States today not feeling any better so he came in to get checked Related Data Previous Rx's Medication Instructions Recorded azithromycin 250 mg tablet See Rx Instructions PO .COMPLEX 5 11/01/22 (Zithromax Z-Alan) days #6 tabs benzonatate 100 mg capsule 100 mg PO TID PRN cough #30 caps 11/01/22 methylprednisolone 4 mg tablets in See Rx Instructions .Route 11/01/22 a dose pack (Medrol (Alan)) .COMPLEX 6 days #21 tabs Allergies Allergy/AdvReac Type Severity Reaction Status Date / Time No Known Allergies Allergy Verified 08/24/22 14:25 [facility] Disclaimer: The information contained in this section may have been updated after the patient was seen, as this information can be updated by other users. Medical History (Updated 11/01/22 @ 11:36 by Leighann Camara APRN) Bronchitis History of smoking 10-25 pack years Multiple lung nodules on CT Wheezing without diagnosis of asthma Surgical History (Updated 08/24/22 @ 14:31 by Connie Muñoz) No history of previous surgery Family History Other No significant family history Social History (Updated 08/24/22 @ 14:28 by Connie Muñoz) Smoking Status: Former smoker smoking status stop date: 2019 second hand exposure: Yes alcohol intake: never substance use type: marijuana current occupational status: other Travel in the last 8 weeks: Inside the [place] household members: spouse and children housing: house ROS Obtained: Yes All systems reviewed & no additional complaints except as documented and Ye
[2022-11-01 11:35] LABS: UTC Influenza A Antigen Negative (Negative); UTC Strep Screen (Rapid) Negative (Negative)
[2022-11-01 11:36] LABS: UTC Influenza B Antigen Negative (Negative)
[2022-11-01 11:38] VITALS: BP 130/68; PULSE 71; RESP 19; TEMP 36.6; O2SAT 97
== END 2022-11-01 11:37 | disposition home or self-care (01) ==
PROVIDERS: Emergency Provider Nurse Practitioner; PCP Emergency Medicine
DX: J32.9 Chronic sinusitis, unspecified (principal)
CPT/HCPCS: 87804; 87880; 99212; 99213; G0463

== ENCOUNTER 2022-11-21 17:01 | Emergency (ER) | payer OTHER, SELFPAY ==
--- NOTE | 2022-11-21 17:14 | PC.NURSE ---
HODA PULIDO at for pt drual
--- NOTE | 2022-11-21 17:17 | CT_ITS ---
PROCEDURE INFORMATION: Exam: CT Abdomen And Pelvis With Contrast Exam date and time: 11/21/2022 5:47 PM Age: 32 years old Clinical indication: Abdominal pain; Generalized; Additional info: Llq pain, blood in stool TECHNIQUE: Imaging protocol: Computed tomography of the abdomen and pelvis with contrast. Radiation optimization: All CT scans at this facility use at least one of these dose optimization techniques: automated exposure control; mA and/or kV adjustment per patient size (includes targeted exams where dose is matched to clinical indication); or iterative reconstruction. Contrast material: ISOVUE; Contrast volume: 75 ml; Contrast route: IV; COMPARISON: CT ABDOMEN PELVIS W CON 01/29/2022 8:52 PM FINDINGS: Liver: Normal. No mass. Gallbladder and bile ducts: Normal. No calcified stones. No ductal dilation. Pancreas: Normal. No ductal dilation. Spleen: Normal. No splenomegaly. Adrenal glands: Normal. No mass. Kidneys and ureters: Normal. No hydronephrosis. Stomach and bowel: Unremarkable. No obstruction. No mucosal thickening. Appendix: No evidence of appendicitis. Intraperitoneal space: Unremarkable. No free air. No significant fluid collection. Vasculature: Unremarkable. No abdominal aortic aneurysm. Lymph nodes: Unremarkable. No enlarged lymph nodes. Urinary bladder: Unremarkable as visualized. Reproductive: Unremarkable as visualized. Bones/joints: Unremarkable. No acute fracture. Soft tissues: Unremarkable. IMPRESSION: No acute findings.
[2022-11-21 17:20] VITALS: BP 141/89; PULSE 90; RESP 20; TEMP 36.8; O2SAT 96; BMI 26.4
--- NOTE | 2022-11-21 17:25 | HMH.EDGENADL ---
Discharge Plan Disposition Patient Disposition: Home, Self-Care Condition: Good Prescriptions Prescriptions: New polyethylene glycol 3350 [Miralax] 17 gram/dose powder 17 g PO DAILY Qty: 119 0RF No Action benzonatate 100 mg capsule 100 mg PO TID PRN (Reason: cough) Qty: 30 0RF azithromycin [Zithromax Z-Alan] 250 mg tablet See Rx Instructions .ROUTE .COMPLEX 5 Days Qty: 6 0RF Rx Instructions: For 250 mg dose pack: take 500 mg today (day 1), then 250 mg for 4 days (days 2-5) methylprednisolone [Medrol (Alan)] 4 mg tablets,dose pack See Rx Instructions .Route .COMPLEX 6 Days Qty: 21 0RF Rx Instructions: taper pack; Referrals Follow up/Referrals: Provider,Referral, [Primary Care Provider] - See instructions Activity Restrictions/Add. Instructions Additional Instructions/Restrictions: You were evaluated in the emergency department today. Please picking supervisor your prescription for MiraLAX and take it daily as prescribed. Follow-up with your primary care provider over the next 48 hours. Return to the emergency department for any new or worsening symptoms. Clinical Impressions Clinical Impression: BRBPR (bright red blood per rectum), Acute constipation, Hemorrhoid Instructions Patient Instructions: DI for Hemorrhoids, DI for Constipation, DI for Acute Abdominal Pain, DI for Rectal Bleeding Discharge ED Provider: Arlene Cook General Adult HPI General Chief complaint: Abdominal Pain Stated complaint: lower abd pain Time Seen by Provider: 11/21/22 17:03 Mode of Arrival: Ambulatory Source of Information: Patient Limitations: No Limitations Description of Symptoms (Recalled from ER Triage Doc. by RN): pt to ed c/o left sided abd pain and dark stool. p states his symptoms have persisted since yesterday. History of Present Illness HPI narrative: This patient is a 32-year-old male with no significant past medical history presenting to the emergency department for evaluation with concern for left lower quadrant abdominal pain and blood in the stool. Patient reports that he has not had a bowel movement in 3 days. He felt like he needed to have a bowel movement today with some left lower quadrant abdominal pain and pressure as well, but when he went to the bathroom and strained, only a small amount of of bright red blood on the toilet paper and in the toilet. No stool came out. He denies experiencing anything like this in the past. No history of abdominal issues or family history of IBD. He denies any fevers, chills, nausea, vomiting, melena, or other concerns. He states that the pain is a 1 out of 10 and is like a pressure sensation, not a true pain. He was well prior to this. No other concerns noted. Related Data Previous Rx's Medication Instructions Recorded azithromycin 250 mg tablet See Rx Instructions PO .COMPLEX 5 11/01/22 (Zithromax Z-Alan) days #6 tabs benzonatate 100 mg capsule 100 mg PO TID PRN cough #30 caps 11/01/22 methylprednisolone 4 mg tablets in See Rx Instructions .Route 11/01/22 a dose pack (Medrol (Alan)) .COMPLEX 6 days #21 tabs polyethylene glycol 3350 17 17 g PO DAILY #119 grams 11/21/22 gram/dose oral powder (Miralax) Allergies Allergy/AdvReac Type Severity Reaction Status Date / Time No Known Allergies Allergy Verified 08/24/22 14:25 [facility] Disclaimer: The information contained in this section may have been updated after the patient was seen, as this information can be updated by other users. Medical History Bronchitis History of smoking 10-25 pack years Multiple lung nodules on CT Wheezing without diagnosis of asthma Surgical History No history of previous surgery Family History Other No significant family history Social History (Reviewed 11/21/22 @ 17:27 by Arlene Cook
[2022-11-21 17:28] LABS: Basophils # 0.1 K/mm3 (0-0.2); Basophils % 1.5 % (0.1-2.0); Eosinophils # 0.1 K/mm3 (0.0-0.4); Eosinophils % 1.9 % (0.1-12.0); Hematocrit 42.7 % (42.0-52.0); Hemoglobin 14.7 g/dL (14.1-18.0); Lymphocytes # 2.3 K/mm3 (0.7-4.5); Lymphocytes % 40.8 % (10-50); Mean Corpuscular HGB Conc 34.3 g/dL (31.8-35.4); Mean Corpuscular Hemoglobin 29.9 pg (27.0-31.2); Mean Corpuscular Volume 87.2 fl (80-94); Mean Platelet Volume 8.4 fl (7.4-10.4); Monocytes # 0.4 K/mm3 (0.1-1.0); Monocytes % 7.8 % (1.7-9.3); Neutrophils # 2.7 K/mm3 (1.8-7.8); Platelet Count 154 K/mm3 (142-424); Red Cell Distribution Width 13.3 % (11.5-17.5); White Blood Count 5.6 K/mm3 (4.8-10.8)
[2022-11-21 17:30] VITALS: BP 135/76; PULSE 85; O2SAT 95
[2022-11-21 17:59] LABS: Chloride 105 mmol/L (98-107)
[2022-11-21 18:00] VITALS: BP 156/72; PULSE 88; O2SAT 96
[2022-11-21 18:00] LABS: Sodium 139 mmol/L (136-145)
[2022-11-21 18:03] LABS: Alanine Aminotransferase 74 U/L (12-78); Albumin Level 4.3 g/dl (3.5-5.0); Albumin/Globulin Ratio 1.3 (1.1-1.8); Alkaline Phosphatase 63 U/L (38-126); Aspartate Amino Transferase 73 U/L (17-59); Bilirubin,Total 0.9 mg/dl (0.2-1.3); Blood Urea Nitrogen 11 mg/dl (9-20); Calcium 9.3 mg/dl (8.4-10.2); Carbon Dioxide 28 mmol/L (22.0-30.0); Creatinine Clearance Estimated 153 mL/min (50-200); Estimated Glomerular Filt Rate 98 ml/min (>60); GFR (African American) 119 ML/MIN (>60); Globulin 3.3 g/dL (1.3-3.2); Glucose 113 mg/dl (74-100); Lactic Acid 0.6 mmol/L (0.7-2.1); Lipase 86 U/L (23-300); Total Protein,Serum 7.6 g/dl (6.3-8.2)
[2022-11-21 18:27] VITALS: BP 117/79; PULSE 76; O2SAT 97
[2022-11-21 18:27] LABS: Microscopic, Urine URINE MICROSCOPIC (MICROSCOPIC)
[2022-11-21 18:36] LABS: Appearance,Urine CLEAR (Clear); Blood, Urine Negative (Negative); Color,Urine YELLOW (Yellow); Glucose,Urine (UA) Negative (Negative); Ketones,Urine TRACE (Negative); Leukocyte Esterase,Urine Negative (Negative); Nitrate,Urine Negative (Negative); PH,Urine 5.5 (5.0-8.5); Protein,Urine TRACE (Negative); Specific Gravity, Urine >= 1.030 (1.005-1.030); Urobilinogen,Urine 0.2 EU/dl (0.2)
[2022-11-21 18:37] LABS: Bilirubin,Urine 1+ (Negative)
[2022-11-21 18:40] LABS: Bacteria,Urine Trace /lpf; Calcium Oxalate Crystals,Urine 2+ /lpf; RBC,Urine Occasional #/hpf (0-3); Squamous Epithelial Cell,Urine Occasional #/hpf (0-5); WBC,Urine Occasional #/hpf (0-3)
[2022-11-21 18:58] VITALS: BP 128/80; PULSE 71; RESP 18; TEMP 36.7; O2SAT 97
== END 2022-11-21 18:59 | disposition home or self-care (01) ==
PROVIDERS: Emergency Provider Emergency Medicine
DX: K62.5 Hemorrhage of anus and rectum (principal); K59.00 Constipation, unspecified; K64.9 Unspecified hemorrhoids; F17.210 Nicotine dependence, cigarettes, uncomplicated; R91.8 Other nonspecific abnormal finding of lung field
CPT/HCPCS: 74177; 80053; 81001; 83605; 83690; 85025; 96360; 99285; Q9967

== ENCOUNTER → 2023-03-02 13:35 | Outpatient (CLI) | payer OTHER, SELFPAY ==
--- NOTE | 2023-03-02 13:35 | CT_ITS ---
FINAL REPORT TECHNIQUE: Axial images were obtained through the chest without contrast. CLINICAL HISTORY: 6 mth F/U LUNG NODULES COMPARISON: 06/22/2022 FINDINGS: Again seen is a 6 mm subpleural anterior right middle lobe nodule on image 193 of series 3 which is stable. There is a left upper lobe subpleural posterior 5 mm nodule which is stable, seen on image 71 of series 3. The heart size is normal. There is no pericardial or pleural effusion. Limited images of the upper abdomen are unremarkable. No suspicious infiltrate or nodule identified. IMPRESSION: Stable pulmonary nodules. Reviewed, Interpreted and Dictated by Darryn Garza MD Transcribed by Anju Barnes Authenticated and [facility]
== END ==
PROVIDERS: Visit Provider Internal Medicine Pulmonary Disease
DX: R91.8 Other nonspecific abnormal finding of lung field (principal)
CPT/HCPCS: 71250

== ENCOUNTER → 2023-03-13 13:41 | Outpatient (CLI) | payer OTHER, SELFPAY ==
[2023-03-18 17:40] LABS: Aspergillus flavus Negative (Neg:<1:1); Aspergillus fumigatus Negative (Neg:<1:1); Aspergillus niger Negative (Neg:<1:1); Blastomyces Antibody Negative (Neg:<1:1)
[2023-03-20 18:12] LABS: D001-IgE D pteronyssinus <0.10 kU/L (Class 0); D002-IgE D farinae <0.10 kU/L (Class 0); E001-IgE Cat Dander <0.10 kU/L (Class 0); E005-IgE Dog Dander <0.10 kU/L (Class 0); E072-IgE Mouse Urine <0.10 kU/L (Class 0); G002-IgE Bermuda Grass <0.10 kU/L (Class 0); G006-IgE Timothy Grass <0.10 kU/L (Class 0); I006-IgE Cockroach, German <0.10 kU/L (Class 0); Immunoglobulin E, Total 16 IU/mL (6-495); M001-IgE Penicillium chrysogen <0.10 kU/L (Class 0); M002-IgE Cladosporium herbarum <0.10 kU/L (Class 0); M003-IgE Aspergillus fumigatus <0.10 kU/L (Class 0); M006-IgE Alternaria alternata <0.10 kU/L (Class 0); T001-IgE Maple/Box Elder <0.10 kU/L (Class 0); T003-IgE Common Silver Birch <0.10 kU/L (Class 0); T006-IgE Cedar, Mountain <0.10 kU/L (Class 0); T007-IgE Oak, White <0.10 kU/L (Class 0); T008-IgE Elm, American <0.10 kU/L (Class 0); T010-IgE Walnut <0.10 kU/L (Class 0); T011-IgE Maple Leaf Sycamore <0.10 kU/L (Class 0); T014-IgE Cottonwood <0.10 kU/L (Class 0); T015-IgE Ash, White <0.10 kU/L (Class 0); T022-IgE Pecan, Hickory <0.10 kU/L (Class 0); T070-IgE White Mulberry <0.10 kU/L (Class 0); W001-IgE Ragweed, Short <0.10 kU/L (Class 0); W011-IgE Thistle, Russian <0.10 kU/L (Class 0); W014-IgE Pigweed, Common <0.10 kU/L (Class 0); W018-IgE Sheep Sorrel <0.10 kU/L (Class 0)
== END ==
PROVIDERS: PCP Emergency Medicine; Visit Provider Internal Medicine Pulmonary Disease
DX: J84.10 Pulmonary fibrosis, unspecified (principal); J30.9 Allergic rhinitis, unspecified
CPT/HCPCS: 36415; 82785; 86003; 86606; 86612

== ENCOUNTER → 2023-04-06 14:41 | Outpatient (CLI) | payer OTHER, SELFPAY | PROVIDERS: PCP Emergency Medicine; Visit Provider Internal Medicine Pulmonary Disease | DX: R06.02 Shortness of breath (principal) | CPT/HCPCS: 94070; 95070; J7674 ==

== ENCOUNTER → 2023-07-11 11:24 | Outpatient (CLI) | payer OTHER, SELFPAY ==
--- NOTE | 2023-07-11 11:29 | XR_ITS ---
FINAL REPORT TECHNIQUE: Chest PA & Lateral CLINICAL HISTORY: SOA FINDINGS: 2 views of the chest were performed. The heart size is normal. The mediastinum is within normal limits. There is no acute cardiopulmonary process. There are no pleural effusions. There is no pneumothorax. There is a subacute to chronic distal left clavicle fracture. IMPRESSION: No acute cardiopulmonary process. Reviewed, Interpreted and Dictated by Ari Arteaga III, MD Transcribed by Narendra Bishop Authenticated and [facility]
== END ==
PROVIDERS: PCP Family Medicine; Visit Provider Nurse Practitioner
DX: R06.02 Shortness of breath (principal); R91.1 Solitary pulmonary nodule
CPT/HCPCS: 71046

== ENCOUNTER → 2023-07-14 10:31 | Outpatient (CLI) | payer OTHER, SELFPAY ==
--- NOTE | 2023-07-14 10:35 | CT_ITS ---
FINAL REPORT TECHNIQUE: Thin section axial CT images of the chest were obtained with contrast. This study was performed with techniques to keep radiation doses as low as reasonably achievable (ALARA). Individualized dose reduction techniques using automated exposure control or adjustment of mA and/or kV according to the patient's size were employed. CLINICAL HISTORY: Chest pain, SOB COMPARISON: 03/02/2023 CT chest 06/22/2022 CTA chest FINDINGS: There is no evidence of pulmonary embolism. There is no evidence of thoracic aortic aneurysm or dissection. Multiple enlarged axillary nodes are once again identified, a nonspecific finding. There is no evidence of mediastinal or hilar mass or adenopathy. There are diffuse bilateral ground glass opacities noted, predominantly perihilar and sparing of the periphery of the lungs. These are new since the prior CT of February 2023. Limited images of the upper abdomen are unremarkable. IMPRESSION: No evidence of pulmonary embolism. Diffuse bilateral ground glass opacities are now present, predominantly perihilar and sparing of the periphery of the lungs. Would favor pulmonary edema as the etiology. Multiple enlarged axillary nodes remain present, not significantly changed since the prior exam. Reviewed, Interpreted and Dictated by Ari Arteaga III, MD Transcribed by Alissa Bush Authenticated and [facility]
[2023-07-14 12:28] LABS: Adenovirus,PCR Not Detected (NotDetected); Bordetella Pertussis Not Detected (NotDetected); Chlamydophila Pneumoniae, PCR Not Detected (NotDetected); Coronavirus 19, PCR Not Detected (NotDetected); Coronavirus 229E Not Detected (NotDetected); Coronavirus NL63 Not Detected (NotDetected); Coronavirus OC43 Not Detected (NotDetected); Coronovirus HKU1,PCR Not Detected (NotDetected); Human Metapneumovirus Not Detected (NotDetected); Influenza A, PCR Not Detected (NotDetected); Influenza AH1, 2009 Not Detected (NotDetected); Influenza AH1, PCR Not Detected (NotDetected); Influenza AH3,PCR Not Detected (NotDetected); Influenza B, PCR Not Detected (NotDetected); Mycoplasma Pneumoniae, PCR Not Detected (NotDetected); Parainfluenza 1, PCR Not Detected (NotDetected); Parainfluenza 2, PCR Not Detected (NotDetected); Parainfluenza 3, PCR Not Detected (NotDetected); Parainfluenza 4, PCR Not Detected (NotDetected); Respiratory Syncytial Virus Not Detected (NotDetected); Rhinovirus/Enterovirus Not Detected (NotDetected)
[2023-07-14 12:42] LABS: Basophils % 0.2 % (0.1-2.0); Eosinophils # 0.1 K/mm3 (0.0-0.4); Hematocrit 43.4 % (42.0-52.0); Hemoglobin 14.4 g/dL (14.1-18.0); Lymphocytes # 1.2 K/mm3 (0.7-4.5); Lymphocytes % 13.7 % (10-50); Mean Corpuscular HGB Conc 33.1 g/dL (31.8-35.4); Mean Corpuscular Hemoglobin 29.1 pg (27.0-31.2); Mean Corpuscular Volume 87.8 fl (80-94); Mean Platelet Volume 8.7 fl (7.4-10.4); Monocytes # 0.6 K/mm3 (0.1-1.0); Monocytes % 7.1 % (1.7-9.3); Neutrophils # 6.8 K/mm3 (1.8-7.8); Neutrophils % 78.1 % (37.0-80.0); Platelet Count 149 K/mm3 (142-424); Red Blood Count 4.94 M/mm3 (4.60-6.20); Red Cell Distribution Width 12.9 % (11.5-17.5); White Blood Count 8.7 K/mm3 (4.8-10.8)
[2023-07-18 20:40] LABS: Fungitell(Beta D-Glucan) Serum >500 pg/mL (<80)
[2023-07-19 17:50] LABS: Aspergillus flavus Negative (Neg:<1:1); Aspergillus fumigatus Negative (Neg:<1:1); Aspergillus niger Negative (Neg:<1:1); Blastomyces Antibody Negative (Neg:<1:1)
[2023-07-21 10:10] LABS: Antinuclear Antibodies (ANA) Negative
[2023-07-21 14:12] LABS: Aspergillus fumigatus IgG Negative; Pigeon Serum Abs Negative
[2023-07-23 19:40] LABS: Histoplasma Gal'mannan Ag Ur <0.5 (<0.5 ng/mL)
== END ==
PROVIDERS: PCP Family Medicine; Visit Provider Internal Medicine Pulmonary Disease
DX: R00.0 Tachycardia, unspecified (principal); R06.09 Other forms of dyspnea; R07.9 Chest pain, unspecified; R91.8 Other nonspecific abnormal finding of lung field; J84.9 Interstitial pulmonary disease, unspecified; B44.9 Aspergillosis, unspecified; J84.10 Pulmonary fibrosis, unspecified; J45.909 Unspecified asthma, uncomplicated; R09.89 Other specified symptoms and signs involving the circulatory and respiratory systems
CPT/HCPCS: 36415; 71275; 85025; 86038; 86140; 86225; 86235; 86331; 86602; 86606; 86609; 86612; 87070; 87077; 87186; 87205; 87385; 87449; 87581; 87632; 87798; Q9967

== ENCOUNTER 2023-07-19 19:38 | Inpatient (IN) | payer OTHER, SELFPAY ==
[2023-07-19] VITALS (10 sets, daily range): BP systolic 109–181; BP diastolic 61–116; PULSE 84–151; RESP 18–43; TEMP 36.7–37.3; O2SAT 50–100; BMI 23.7; BMI 23.6
--- NOTE | 2023-07-19 19:50 | XR_ITS ---
PROCEDURE INFORMATION: Exam: XR Chest Exam date and time: 07/19/2023 8:11 PM Age: 33 years old Clinical indication: Cough and shortness of breath; Patient HX: PT currently being treated for lung infection, C/O SOB; Additional info: Shortness of air TECHNIQUE: Imaging protocol: Radiologic exam of the chest. Views: 1 view. COMPARISON: CR XR CHEST 2V 07/11/2023 11:40 AM FINDINGS: Lungs: Unremarkable. No consolidation. Pleural spaces: Unremarkable. No pleural effusion. No pneumothorax. Heart/Mediastinum: Unremarkable. No cardiomegaly. Bones/joints: Unremarkable. IMPRESSION: No acute pulmonary findings.
--- NOTE | 2023-07-19 19:52 | ECG_ITS ---
APPROVED REPORT Exam: Resting ECG HR:120 bpm ECG Measurements Heart Rate 120 AXES CA 189 P 72 QRSd 86 QRS 79 QT 266 T 58 QTc 338 Conclusion SINUS TACHYCARDIA ABNORMAL RHYTHM ECG UNCONFIRMED REPORT Electronically signed by : Esteban Morales MD 07/20/2023 07:49:37
--- NOTE | 2023-07-19 19:53 | PC.NURSE ---
call placed to rad,resp therapy for services.
[2023-07-19 19:55] LABS: VBG Base Excess -0.5 mmol/L (-2.4-2.3); VBG HCO3 24.8 mmol/L (23-30); VBG Oxygen Saturation 22.9 % (50-70); VBG PCO2 43.7 mmol/L (35-51); VBG PH 7.37 mmol/L (7.31-7.41); VBG PO2 14.2 mmol/L (28-40); VBG Total CO2 26.1 mmol/L (23-27)
[2023-07-19 20:01] LABS: Basophils # 0.1 K/mm3 (0-0.2); Basophils % 0.7 % (0.1-2.0); Eosinophils # 0.3 K/mm3 (0.0-0.4); Eosinophils % 1.8 % (0.1-12.0); Hematocrit 54.5 % (42.0-52.0); Hemoglobin 17.7 g/dL (14.1-18.0); Lymphocytes % 20.2 % (10-50); Mean Corpuscular HGB Conc 32.4 g/dL (31.8-35.4); Mean Corpuscular Hemoglobin 28.6 pg (27.0-31.2); Mean Corpuscular Volume 88.2 fl (80-94); Mean Platelet Volume 8.2 fl (7.4-10.4); Monocytes # 0.7 K/mm3 (0.1-1.0); Monocytes % 4.9 % (1.7-9.3); Neutrophils # 10.8 K/mm3 (1.8-7.8); Neutrophils % 72.4 % (37.0-80.0); Platelet Count 237 K/mm3 (142-424); Red Blood Count 6.18 M/mm3 (4.60-6.20); Red Cell Distribution Width 13.1 % (11.5-17.5); White Blood Count 14.9 K/mm3 (4.8-10.8)
--- NOTE | 2023-07-19 20:02 | [facility].EDGENADL ---
Discharge Plan Disposition Patient Disposition: Admitted Chief Complaint: Shortness of Breath/Dyspnea Clinical Impressions Clinical Impression: Pulmonary emboli, Acute dyspnea, Acute on chronic respiratory failure with hypoxemia, Circumoral cyanosis, DANILO (acute kidney injury) Discharge ED Provider: Tapan Reyes General Adult HPI General Chief complaint: Shortness of Breath/Dyspnea Stated complaint: shakey, cold hands/feet, SOA Time Seen by Provider: 07/19/23 19:41 Mode of Arrival: Family Vehicle Source of Information: Patient Limitations: No Limitations Description of Symptoms (Recalled from ER Triage Doc. by RN): 33 yo male presents with acute onset of shortness of air x 1 hour that began while he was sleeping. patient states he is having associated pain throughout his neck and anterior upper chest wall. Reports has an upcoming bronchoscopy scheduled on monday and is on his third round of antibiotics for lung bacterial infection . Related Data Home Medications Medication Instructions Recorded Confirmed sulfamethoxazole 800 1 tab PO BID abx 07/18/23 07/19/23 mg-trimethoprim 160 mg tablet (Bactrim DS) Previous Rx's Medication Instructions Recorded fluticasone propionate 50 1 spray intranasal BID PRN allergy 03/13/23 mcg/actuation nasal symptoms 90 days #16 grams spray,suspension (Flonase Allergy Relief) ipratropium 0.5 mg-albuterol 3 mg 3 ml inhalation QID PRN shortness 07/14/23 (2.5 mg base)/3 mL nebulization of breath or wheezing 90 days #270 soln mL Allergies Allergy/AdvReac Type Severity Reaction Status Date / Time No Known Allergies Allergy Verified 07/17/23 15:03 [facility] Disclaimer: The information contained in this section may have been updated after the patient was seen, as this information can be updated by other users. Medical History (Updated 07/19/23 @ 22:39 by Tapan Reyes MD) Abnormal computerized axial tomography of chest Abnormal Screening Computed Tomography (CT) of Chest Asthma Bronchitis Chest pain Dyspnea on exertion History of smoking 10-25 pack years ILD (interstitial lung disease) Multiple lung nodules on CT Pneumonia due to methicillin resistant Staphylococcus aureus (MRSA) Tachycardia Wheezing without diagnosis of asthma Surgical History No history of previous surgery Family History Other Diabetes Hypertension Social History Smoking Status: Current some day smoker smoking status stop date: april 2023 second hand exposure: Yes alcohol intake: never substance use type: marijuana current occupational status: other Travel in the last 8 weeks: None household members: spouse and children housing: house ROS Obtained: Yes All systems reviewed & no additional complaints except as documented Physical Exam General General appearance: alert, anxious, in distress and other ( ) Head Head exam: atraumatic and normocephalic Eye Eye exam: Present normal appearance, PERRL and EOMI ENT ENT exam: Present mucous membranes moist Neck Neck exam: Present normal inspection, full ROM and trachea midline Chest Chest inspection: Present symmetric chest wall rise Respiratory Respiratory exam: Present normal lung sounds bilaterally and respiratory distress; Absent wheezes, stridor, accessory muscle use or prolonged expiratory phase Cardiovascular Cardiovascular exam: Present normal rhythm and tachycardia Abdominal Exam Abdominal exam: Present soft; Absent distention, tenderness, guarding, rebound, rigidity or normal bowel sounds Extremities Exam Extremities exam: Absent edema Neurological Exam Neurological exam: Present alert, oriented X3, CN II-XII intact and normal gait; Absent motor sensory deficit Skin Skin exam: Present warm, dry, cyanosis, diaphoresis and pallor; Absent erythem
--- NOTE | 2023-07-19 20:03 | PC.NURSE ---
RT notified that MD wants patient put on bi-pap
[2023-07-19 20:05] LABS: Alanine Aminotransferase 19 U/L (12-78); Albumin/Globulin Ratio 1.1 (1.1-1.8); Alkaline Phosphatase 62 U/L (38-126); Anion Gap 13.5 mEq/L (5-15); Aspartate Amino Transferase 39 U/L (17-59); Bilirubin,Total 0.7 mg/dl (0.2-1.3); Blood Urea Nitrogen 11 mg/dl (9-20); Calcium 9.3 mg/dl (8.4-10.2); Carbon Dioxide 28 mmol/L (22.0-30.0); Chloride 100 mmol/L (98-107); Creatinine Clearance Estimated 94 mL/min (50-200); Estimated Glomerular Filt Rate 64 ml/min (>60); GFR (African American) 77 ML/MIN (>60); Globulin 3.8 g/dL (1.3-3.2); Glucose 114 mg/dl (74-100); Potassium 4.5 mmoL/L (3.5-5.1); Sodium 137 mmol/L (136-145); Total Protein,Serum 7.8 g/dl (6.3-8.2)
--- NOTE | 2023-07-19 20:17 | PC.NURSE ---
spoke with sofi at [facility]; ordering Vancomycin 2grams for MRSA pneumonia
[2023-07-19 20:18] LABS: Troponin I < 0.01 ng/ml (0.00-0.034)
[2023-07-19 20:39] LABS: Lactic Acid 2.1 mmol/L (0.7-2.1)
[2023-07-19 21:15] LABS: NT Pro Brain Natriuretic Pep. < 20.0 pg/mL (0-125)
--- NOTE | 2023-07-19 21:15 | CT_ITS ---
PROCEDURE INFORMATION: Exam: CTA Chest With Contrast Exam date and time: 07/19/2023 9:33 PM Age: 33 years old Clinical indication: Condition or disease; Lung condition and disease; Other: Tachycardia, hypoxemia TECHNIQUE: Imaging protocol: Computed tomographic angiography of the chest with contrast. Exam focused on the arteries. 3D rendering (Not supervised by radiologist): MIP and/or 3D reconstructed images were created by the technologist. Radiation optimization: All CT scans at this facility use at least one of these dose optimization techniques: automated exposure control; mA and/or kV adjustment per patient size (includes targeted exams where dose is matched to clinical indication); or iterative reconstruction. Contrast material: ISOVUE; Contrast volume: 70 ml; Contrast route: INTRAVENOUS (IV); REPORTING DATA: Count of CT and Cardiac NM exams in prior 12 months: This patient has received 3 known CTs and 0 known cardiac nuclear medicine studies in the 12 months prior to the current study. COMPARISON: CT ANGIO CHEST PE PROTOCOL 07/14/2023 10:41 AM FINDINGS: Pulmonary arteries: Possible emboli within bibasilar segmental/subsegmental pulmonary arteries with evaluation limited by motion artifact. Normal caliber pulmonary trunk measuring 2.3 cm. Aorta: Unremarkable. No aortic aneurysm. No aortic dissection. Lungs: Increased diffuse ground-glass opacities with subpleural sparing. Pleural spaces: Unremarkable. No pneumothorax. No pleural effusion. Heart: Unremarkable. No cardiomegaly. No pericardial effusion. Heart RV/LV ratio: RV/LV ratio 0.72. Lymph nodes: Unremarkable. No enlarged lymph nodes. Diaphragm: Small hiatal hernia. Bones/joints: Unremarkable. No acute fracture. Soft tissues: Unremarkable. IMPRESSION: 1. Possible emboli within bibasilar segmental/subsegmental pulmonary arteries with evaluation limited by motion artifact. No evidence of right heart strain. 2. Increased diffuse ground-glass opacities with subpleural sparing, findings which may be seen with pulmonary edema or other alveolar process, infection, or interstitial lung disease such as NSIP.
--- NOTE | 2023-07-19 22:04 | PC.NURSE ---
spoke with house requesting a bed for admission
--- NOTE | 2023-07-19 22:06 | PC.NURSE ---
OBSERVATION ADMISSION TO 214 WITH DX OF MRSA PNA AND POSS PE TO SERVICE OF HOSPITALIST.
--- NOTE | 2023-07-19 22:09 | EXP.HP ---
History of Present Illness *Admission Date: 07/19/23 *Reason for visit:: PE/Pneumonia/sepsis *History of present illness: Is a 33-year-old male presented to the ED with c/o SOA. PMHX of interstitial lung disease and recent diagnosis of MRSA pneumonia. Patient has been seen by Dr. Arceo (Pulmonology) on 07/17/23 and was started on Bactrim and nebulizers. He started having progressively worsening shortness of breath starting yesterday associated with dry, nonproductive cough. No fevers or chills, nausea or vomiting, but has had palpitations. No history of DVT or PE. He is scheduled to see Dr. Arceo this coming Monday for a bronchoscope. His ED workup revealed a leukocytosis of 14.9, HR in the 150's, and hypoxia upon arrival. He was placed on the Bipap and started on Cefepime and Vancomycin. His CT of his chest revealed possible emboli within bibasilar segmental/subsegmental pulmonary arteries and increased diffuse ground-glass opacities with subpleural sparing. The pt was started on heparin gtt and a the ED physician consulted the hospitalist team for further medical management. The patient arrives to the medical floor in step-down. He is resting comfortable on the bipap. He c/o neck pain and sternum pain that has been chronic for four weeks. He is hemodynamically stable and states the bipap is comfortable for him. He will have a pulmonary consult placed for the morning [facility] Disclaimer: The information contained in this section may have been updated after the patient was seen, as this information can be updated by other users. Medical History (Updated 07/19/23 @ 22:39 by Tapan Reyes MD) Abnormal computerized axial tomography of chest Abnormal Screening Computed Tomography (CT) of Chest Asthma Bronchitis Chest pain Dyspnea on exertion History of smoking 10-25 pack years ILD (interstitial lung disease) Multiple lung nodules on CT Pneumonia due to methicillin resistant Staphylococcus aureus (MRSA) Tachycardia Wheezing without diagnosis of asthma Surgical History No history of previous surgery Family History Other Diabetes Hypertension Social History Smoking Status: Former smoker smoking status stop date: april 2023 second hand exposure: Yes alcohol intake: former substance use type: marijuana current occupational status: unemployed and other Travel in the last 8 weeks: None household members: spouse and children housing: house Review of Systems *Cardiovascular Cardiovascular: Denies chest pain, Reports dyspnea and Reports dyspnea on exertion *Respiratory Respiratory: Reports dyspnea and Reports dyspnea on exertion *Gastrointestinal Gastrointestinal: Reports system reviewed and no additional complaints, except as documented *Genitourinary Genitourinary: Reports system reviewed and no additional complaints, except as documented *Musculoskeletal Musculoskeletal: Reports system reviewed and no additional complaints, except as documented *Neurologic Neurologic: Reports system reviewed and no additional complaints, except as documented Meds Home Medications and Allergies Home Medications Medication Instructions Recorded Confirmed Type fluticasone propionate 50 1 spray intranasal BID PRN allergy 03/13/23 07/19/23 Rx mcg/actuation nasal symptoms 90 days #16 grams spray,suspension (Flonase Allergy Relief) ipratropium 0.5 mg-albuterol 3 mg 3 ml inhalation QID PRN shortness 07/14/23 07/19/23 Rx (2.5 mg base)/3 mL nebulization of breath or wheezing 90 days #270 soln mL sulfamethoxazole 800 1 tab PO BID abx 07/18/23 07/19/23 History mg-trimethoprim 160 mg tablet (Bactrim DS) New Prescriptions to Start Prescriptions: Allergies Allergy/AdvReac Type Severity Reaction Status Date / Time No Known Allergies All
--- NOTE | 2023-07-19 22:24 | PC.NURSE ---
sofi,pharmd spoke with re: heparin. she will place orders for both bolus, infusion and PTT.
--- NOTE | 2023-07-19 22:39 | PC.NURSE ---
pt arrived to floor via stretcher @22:38
[2023-07-19 23:43] LABS: PTT Heparin (inpatient only) 29.6 Seconds (23.6-34.0)
[2023-07-19 23:45] LABS: Troponin I < 0.01 ng/ml (0.00-0.034)
[2023-07-20] VITALS (23 sets, daily range): BP systolic 97–118; BP diastolic 52–75; PULSE 60–94; RESP 14–40; TEMP 36.4–37.2; O2SAT 94–100; BMI 23.6
[2023-07-20 00:25] LABS: Reflex Lactic Add Lactic Reflex
[2023-07-20 00:34] LABS: ABG Base Excess -0.5 mmol/L (-2.4-2.3); ABG HCO3 22.6 mmhg (22.0-26.0); ABG Oxygen Saturation 98 % (90-100); ABG PCO2 29.6 mmhg (35.0-45.0); ABG PO2 85.5 mmhg (80-100); ABG TCO2 23.5 mmhg (23-27)
[2023-07-20 00:35] LABS: Allen's Test Non Applicable; Oxygen 25 %; Source Right Brachial; Vent Rate 18
[2023-07-20 00:57] LABS: PTT Heparin (inpatient only) 148.3 Seconds (23.6-34.0)
[2023-07-20 01:00] LABS: Lactic Acid Follow Up (RFLX 1) 0.8 mmol/L (0.7-2.1)
[2023-07-20 03:14] LABS: Chloride 107 mmol/L (98-107); Sodium 138 mmol/L (136-145)
[2023-07-20 03:17] LABS: Basophils # 0.1 K/mm3 (0-0.2); Basophils % 0.5 % (0.1-2.0); Blood Urea Nitrogen 11 mg/dl (9-20); Carbon Dioxide 24 mmol/L (22.0-30.0); Creatinine Clearance Estimated 101 mL/min (50-200); Eosinophils # 0.2 K/mm3 (0.0-0.4); Eosinophils % 2.2 % (0.1-12.0); Estimated Glomerular Filt Rate 70 ml/min (>60); GFR (African American) 85 ML/MIN (>60); Hematocrit 44.1 % (42.0-52.0); Lymphocytes # 1.7 K/mm3 (0.7-4.5); Mean Corpuscular HGB Conc 32.3 g/dL (31.8-35.4); Mean Corpuscular Hemoglobin 28.5 pg (27.0-31.2); Mean Corpuscular Volume 88.2 fl (80-94); Mean Platelet Volume 8.4 fl (7.4-10.4); Monocytes % 11.5 % (1.7-9.3); Neutrophils # 5.7 K/mm3 (1.8-7.8); Neutrophils % 65.8 % (37.0-80.0); Platelet Count 185 K/mm3 (142-424); Red Cell Distribution Width 13.1 % (11.5-17.5); White Blood Count 8.7 K/mm3 (4.8-10.8)
[2023-07-20 03:18] LABS: Calcium 8.1 mg/dl (8.4-10.2); Glucose 134 mg/dl (74-100)
[2023-07-20 03:25] LABS: Hemoglobin 14.3 g/dL (14.1-18.0)
[2023-07-20 03:38] LABS: PTT Heparin (inpatient only) 107.3 Seconds (23.6-34.0)
[2023-07-20 03:51] LABS: Troponin I < 0.01 ng/ml (0.00-0.034)
--- NOTE | 2023-07-20 06:08 | EXP.SEPSISRE ---
[facility] Tissue Perfusion Eval Sepsis Re-Evaluation Performed: Yes Date Performed: 07/19/23 Time Performed: 23:00
[2023-07-20 07:08] LABS: PTT Heparin (inpatient only) 72.7 Seconds (23.6-34.0)
--- NOTE | 2023-07-20 07:27 | HMH.PHAINT1 ---
Pharmacy Intervention Comments: MEDICATION RECONCILIATION COMPLETED ON PATIENT USING EXTERNAL FILL HISTORY FROM PHARMACY AND LIST FROM PULMONOLOGY OFFICE. -ALEJANDRA IRVIND
--- NOTE | 2023-07-20 07:42 | EXP.PHA.CONS ---
Pharmacy Consult Date: 07/20/23 Time: 07:43 Referring provider: DR KIRK Reason for Consult:: VANCOMYCIN DOSING CONSULT Allergies Allergy/AdvReac Type Severity Reaction Status Date / Time No Known Allergies Allergy Verified 07/17/23 15:03 Home Medications Medication Instructions Recorded Confirmed Type sulfamethoxazole 800 1 tab PO BID Infection 07/18/23 07/19/23 History mg-trimethoprim 160 mg tablet (Bactrim DS) fluticasone propionate 50 1 spray intranasal BIDP PRN 07/20/23 07/20/23 History mcg/actuation nasal allergy symptoms spray,suspension (Flonase Allergy Relief) ipratropium 0.5 mg-albuterol 3 mg 3 ml inhalation QIDP PRN shortness 07/20/23 07/20/23 History (2.5 mg base)/3 mL nebulization of breath or wheezing soln New Prescriptions to Start Prescriptions: Height: 1.85 m Weight: 80.91 kg Laboratory Results:: Laboratory Results - last 24 hr 07/19/23 19:46: WBC 14.9 H, RBC 6.18, Hgb 17.7, Hct 54.5 H, MCV 88.2, MCH 28.6, MCHC 32.4, RDW 13.1, Plt Count 237, MPV 8.2, Neut % (Auto) 72.4, Lymph % (Auto) 20.2, Russell % (Auto) 4.9, Eos % (Auto) 1.8, Baso % (Auto) 0.7, Neut # (Auto) 10.8 H, Lymph # (Auto) 3.0, Russell # (Auto) 0.7, Eos # (Auto) 0.3, Baso # (Auto) 0.1, APTT 29.6, Sodium 137, Potassium 4.5, Chloride 100, Carbon Dioxide 28, Anion Gap 13.5, BUN 11, Creatinine 1.30 H, Estimated Creat Clear 94, Estimated GFR 64, Est GFR ( Amer) 77, Glucose 114 H, Calcium 9.3, Total Bilirubin 0.7, AST 39, ALT 19, Alkaline Phosphatase 62, Troponin I < 0.01, NT-Pro-B Natriuret Pep < 20.0, Total Protein 7.8, Albumin 4.0, Globulin 3.8 H, Albumin/Globulin Ratio 1.1 07/19/23 19:48: VBG pH 7.37, VBG pCO2 43.7, VBG pO2 14.2 L, VBG HCO3 24.8, VBG Total CO2 26.1, VBG O2 Saturation 22.9 L, VBG Base Excess -0.5 07/19/23 20:01: Lactate 2.1 07/19/23 23:15: Troponin I < 0.01 07/19/23 23:25: Specimen Source Right brachial, O2 % 25, ABG pH 7.50 H, ABG pCO2 29.6 L, ABG pO2 85.5, ABG HCO3 22.6, ABG Total CO2 23.5, ABG O2 Saturation 98, ABG Base Excess -0.5, Tevin Test Non applicable, Vent Rate 18 07/20/23 00:15: APTT 148.3 H* 07/20/23 00:45: Lactate 0.8 07/20/23 02:57: WBC 8.7 D, RBC 5.00, Hgb 14.3 D, Hct 44.1, MCV 88.2, MCH 28.5, MCHC 32.3, RDW 13.1, Plt Count 185, MPV 8.4, Neut % (Auto) 65.8, Lymph % (Auto) 20.0, Russell % (Auto) 11.5 H, Eos % (Auto) 2.2, Baso % (Auto) 0.5, Neut # (Auto) 5.7, Lymph # (Auto) 1.7, Russell # (Auto) 1.0, Eos # (Auto) 0.2, Baso # (Auto) 0.1, APTT 107.3 H*, Sodium 138, Potassium 4.0, Chloride 107, Carbon Dioxide 24, Anion Gap 11.0, BUN 11, Creatinine 1.20, Estimated Creat Clear 101, Estimated GFR 70, Est GFR ( Amer) 85, Glucose 134 H, Calcium 8.1 L, Troponin I < 0.01 07/20/23 06:30: APTT 72.7 H* Medical History: Medical History (Updated 07/19/23 @ 22:39 by Tapan Reyes MD) Abnormal computerized axial tomography of chest Abnormal Screening Computed Tomography (CT) of Chest Asthma Bronchitis Chest pain Dyspnea on exertion History of smoking 10-25 pack years ILD (interstitial lung disease) Multiple lung nodules on CT Pneumonia due to methicillin resistant Staphylococcus aureus (MRSA) Tachycardia Wheezing without diagnosis of asthma Assessment and Plan Assessment and plan all Dx Assessment and Plan for all problems:: Pharmacokinetic dosing service Objective: Age: 33 yo Serum creatinine: 1.2 mg/dL Height: 72.8 Inches Weight (kg): 80.91 Diagnosis: PNEUMONIA Assessment: IBW (kg): 79.44 Dosing wt(kg): 80.91 Estimated Creatinine clearance (ml/min): 99.3 CRCL method: Cockcroft and Gault using ibw(default). Drug selected: Vancomycin Loading dose (mg): 2000 MG Vd (liters): 56.6 (factor used: 0.7 L/kg) Edi (hr-1): 0.087 Half life (hrs): 7.97 CLvanco=?? 4.924 L/hr Recommended dose: 1250 mg Interval: 12 hrs Infusion time (hrs): 2.0 Predicted peak
--- NOTE | 2023-07-20 07:54 | HMH.PHAHEP ---
[facility] Pharmacy Heparin Dosing Demographic Data Admission date:: 07/19/23 Date: 07/20/23 Time: 07:54 Allergies Allergy/AdvReac Type Severity Reaction Status Date / Time No Known Allergies Allergy Verified 07/17/23 15:03 Height: 1.85 m Weight: 80.91 kg Indication Medication therapy:: Heparin Current Indications:: PULMONARY EMBOLISM - HIGH DOSE Current Active Problems (Updated 07/19/23 @ 22:39 by Tapan Reyes MD) Pulmonary emboli (Acute) Acute dyspnea (Acute) Acute on chronic respiratory failure with hypoxemia (Acute) Circumoral cyanosis (Acute) DANILO (acute kidney injury) (Acute) Pulmonary emboli (Acute) Sepsis (Acute) Pneumonia due to methicillin resistant Staphylococcus aureus (MRSA) (Acute) ILD (interstitial lung disease) (Acute) CVA?: No Bleeding problem?: No Kidney disease?: No CO?: No Desired PTT range:: 50-75 seconds Comments:: BASELINE PTT 29.6 SECONDS Labs Anticoagulation Lab Results:: 07/19/23 07/20/23 19:46 02:57 Hgb 17.7 14.3 D Hct 54.5 H 44.1 Plt Count 237 185 Monitoring Dose Monitor 1: Date: 07/19/23 Time: 22:42 PTT Result:: BASELINE PTT: 29.6 SECONDS Infusion Rate:: STARTED HEPARIN DRIP AT 1500 UNITS/HOUR = 30 ML/HOUR AND BOLUSED 6500 UNITS HEPARIN IV ONCE. Dose Monitor 2: Date: 07/20/23 Time: 00:15 PTT Result:: 148.3 SECONDS Infusion Rate:: DECREASED HEPARIN DRIP RATE TO 1300 UNITS/HOUR = 26 ML/HOUR Dose Monitor 3: Date: 07/20/23 Time: 02:57 PTT Result:: 107.3 SECONDS Infusion Rate:: DECREASED HEPARIN DRIP RATE TO 1050 UNITS/HOUR = 21 ML/HOUR Dose Monitor 4: Date: 07/20/23 Time: 06:30 PTT Result:: 72.7 SECONDS Infusion Rate:: CONTINUED CURRENT HEPARIN DRIP RATE OF 1050 UNITS/HOUR = 21 ML/HOUR Dose Monitor 5: Date: 07/20/23 Time: 09:00 PTT Result:: 54.2 SECONDS Infusion Rate:: DRIP STOPPED AND LOVENOX 80 MG Q12H STARTED. Core Measures Is INR > or = 2 at discharge?: No Most Recent Labs:: Laboratory Results - last 24 hr 07/19/23 19:46: WBC 14.9 H, RBC 6.18, Hgb 17.7, Hct 54.5 H, MCV 88.2, MCH 28.6, MCHC 32.4, RDW 13.1, Plt Count 237, MPV 8.2, Neut % (Auto) 72.4, Lymph % (Auto) 20.2, Thurston % (Auto) 4.9, Eos % (Auto) 1.8, Baso % (Auto) 0.7, Neut # (Auto) 10.8 H, Lymph # (Auto) 3.0, Thurston # (Auto) 0.7, Eos # (Auto) 0.3, Baso # (Auto) 0.1, APTT 29.6, Sodium 137, Potassium 4.5, Chloride 100, Carbon Dioxide 28, Anion Gap 13.5, BUN 11, Creatinine 1.30 H, Estimated Creat Clear 94, Estimated GFR 64, Est GFR ( Amer) 77, Glucose 114 H, Calcium 9.3, Total Bilirubin 0.7, AST 39, ALT 19, Alkaline Phosphatase 62, Troponin I < 0.01, NT-Pro-B Natriuret Pep < 20.0, Total Protein 7.8, Albumin 4.0, Globulin 3.8 H, Albumin/Globulin Ratio 1.1 07/19/23 19:48: VBG pH 7.37, VBG pCO2 43.7, VBG pO2 14.2 L, VBG HCO3 24.8, VBG Total CO2 26.1, VBG O2 Saturation 22.9 L, VBG Base Excess -0.5 07/19/23 20:01: Lactate 2.1 07/19/23 23:15: Troponin I < 0.01 07/19/23 23:25: Specimen Source Right brachial, O2 % 25, ABG pH 7.50 H, ABG pCO2 29.6 L, ABG pO2 85.5, ABG HCO3 22.6, ABG Total CO2 23.5, ABG O2 Saturation 98, ABG Base Excess -0.5, Tevin Test Non applicable, Vent Rate 18 07/20/23 00:15: APTT 148.3 H* 07/20/23 00:45: Lactate 0.8 07/20/23 02:57: WBC 8.7 D, RBC 5.00, Hgb 14.3 D, Hct 44.1, MCV 88.2, MCH 28.5, MCHC 32.3, RDW 13.1, Plt Count 185, MPV 8.4, Neut % (Auto) 65.8, Lymph % (Auto) 20.0, Thurston % (Auto) 11.5 H, Eos % (Auto) 2.2, Baso % (Auto) 0.5, Neut # (Auto) 5.7, Lymph # (Auto) 1.7, Thurston # (Auto) 1.0, Eos # (Auto) 0.2, Baso # (Auto) 0.1, APTT 107.3 H*, Sodium 138, Potassium 4.0, Chloride 107, Carbon Dioxide 24, Anion Gap 11.0, BUN 11, Creatinine 1.20, Estimated Creat Clear 101, Estimated GFR 70, Est GFR ( Amer) 85, Glucose 134 H, Calcium 8.1 L, Troponin I < 0.01 07/20/23 06:30: APTT 72.7 H* If INR was < than 2.0 why was therapy stopped?: CHANGED TO LOVENOX 80 MG Q1
--- NOTE | 2023-07-20 07:54 | EXP.ACUTE.PN ---
Subjective *Date: 07/20/23 *Time: 12:54 Interval history: Patient on 2 L nasal cannula this morning. Alert and oriented x3. Family at bedside. Dyspneic with any type of exertion. Improvement in labs since initiating vancomycin and cefepime. Complains of some intermittent pain in his lower neck that radiates up into his face that is worse with coughing or deep breathing. Denies nausea, vomiting, diarrhea, syncope. No fever chills overnight Medical Exam Vital signs and Labs for Last 24 Hours: Vital Signs Temp Pulse Pulse Resp BP BP Pulse Ox 07/20/23 07:35 97.7 F 07/20/23 06:00 60 15 99/62 L 99 07/20/23 05:00 07/20/23 00:00 98.8 F 07/20/23 04:00 70 07/20/23 04:00 98.9 F 69 20 97/52 L 94 L 07/20/23 04:00 07/20/23 03:00 07/20/23 02:00 76 14 113/64 98 07/20/23 00:00 90 07/20/23 00:00 94 H 25 H 110/58 L 98 07/20/23 01:00 07/20/23 00:00 07/20/23 00:17 07/19/23 22:53 99.1 F 84 24 109/61 L 99 07/19/23 20:35 07/19/23 22:31 98.8 F 85 20 134/81 07/19/23 22:00 101 H 28 H 117/83 98 07/19/23 21:51 115 H 26 H 109/68 L 99 07/19/23 21:00 103 H 22 139/75 98 07/19/23 20:30 118 H 27 H 146/77 H 98 07/19/23 20:00 131 H 43 H 149/80 H 100 07/19/23 19:43 146 H 180/116 H 92 L 07/19/23 19:46 98.1 F 151 H 37 H 181/116 H 91 L O2 Del Method O2 Flow Rate FiO2 07/20/23 07:35 07/20/23 06:00 Nasal Cannula 2 07/20/23 05:00 Nasal Cannula 2 07/20/23 00:00 07/20/23 04:00 07/20/23 04:00 Nasal Cannula 2 07/20/23 04:00 Nasal Cannula 2 07/20/23 03:00 Nasal Cannula 2 07/20/23 02:00 Nasal Cannula 2 07/20/23 00:00 07/20/23 00:00 BiPAP 25 07/20/23 01:00 Nasal Cannula 2 07/20/23 00:00 BiPAP 35 07/20/23 00:17 25 07/19/23 22:53 BiPAP 07/19/23 20:35 50 07/19/23 22:31 BiPAP 07/19/23 22:00 07/19/23 21:51 07/19/23 21:00 BiPAP 07/19/23 20:30 07/19/23 20:00 Non-Rebreather 15 07/19/23 19:43 07/19/23 19:46 Room Air Intake and Output 07/19/23 07/19/23 07/20/23 15:59 23:59 07:59 Intake Total 300 / 300 Output Total 1400 / 1400 Balance -1100 / -1100 Intake: Intake, Oral Amount 300 / 300 Output: Output, Urine Amount 1400 / 1400 Other: Number of Unmeasured Voids 0 Weight 80.91 kg 80.91 kg Patient Weight 07/20/23 23:59 Weight 80.91 kg Laboratory Results - last 24 hr 07/19/23 19:46: WBC 14.9 H, RBC 6.18, Hgb 17.7, Hct 54.5 H, MCV 88.2, MCH 28.6, MCHC 32.4, RDW 13.1, Plt Count 237, MPV 8.2, Neut % (Auto) 72.4, Lymph % (Auto) 20.2, [place] % (Auto) 4.9, Eos % (Auto) 1.8, Baso % (Auto) 0.7, Neut # (Auto) 10.8 H, Lymph # (Auto) 3.0, [place] # (Auto) 0.7, Eos # (Auto) 0.3, Baso # (Auto) 0.1, APTT 29.6, Sodium 137, Potassium 4.5, Chloride 100, Carbon Dioxide 28, Anion Gap 13.5, BUN 11, Creatinine 1.30 H, Estimated Creat Clear 94, Estimated GFR 64, Est GFR ( Amer) 77, Glucose 114 H, Calcium 9.3, Total Bilirubin 0.7, AST 39, ALT 19, Alkaline Phosphatase 62, Troponin I < 0.01, NT-Pro-B Natriuret Pep < 20.0, Total Protein 7.8, Albumin 4.0, Globulin 3.8 H, Albumin/Globulin Ratio 1.1 07/19/23 19:48: VBG pH 7.37, VBG pCO2 43.7, VBG pO2 14.2 L, VBG HCO3 24.8, VBG Total CO2 26.1, VBG O2 Saturation 22.9 L, VBG Base Excess -0.5 07/19/23 20:01: Lactate 2.1 07/19/23 23:15: Troponin I < 0.01 07/19/23 23:25: Specimen Source Right brachial, O2 % 25, ABG pH 7.50 H, ABG pCO2 29.6 L, ABG pO2 85.5, ABG HCO3 22.6, ABG Total CO2 23.5, ABG O2 Saturation 98, ABG Base Excess -0.5, Tevin Test Non applicable, Vent Rate 18 07/20/23 00:15: APTT 148.3 H* 07/20/23 00:45: Lactate 0.8 07/20/23 02:57: WBC 8.7 D, RBC 5.00, Hgb 14.3 D, Hct 44.1, MCV 88.2, MCH 28.5, MCHC 32.3, RDW 13.1, Plt Count 185, MPV 8.4, Neut % (Auto) 65.8, Lymph % (Auto) 20.0, [place] % (Auto) 11.5 H, Eos % (Auto) 2.2, Baso % (Auto) 0.5, Ne
--- NOTE | 2023-07-20 08:47 | CA_ITS ---
FINAL REPORT TECHNIQUE: Bilateral lower extremity venous duplex was performed with augmentation and compression. CLINICAL HISTORY: dvt eval, Lung infections MRSA & fungal COMPARISON: None FINDINGS: Proper flow is seen throughout the deep venous systems bilaterally. There is no evidence of deep venous thrombosis. IMPRESSION: No evidence of deep venous thrombosis. Reviewed, Interpreted and Dictated by Darryn Garza MD Transcribed by Anju Barnes Authenticated and [facility]
[2023-07-20 09:12] LABS: ABG HCO3 22.3 mmhg (22.0-26.0); ABG Oxygen Saturation 97 % (90-100); ABG PCO2 34.2 mmhg (35.0-45.0); ABG PH 7.43 mmol/L (7.35-7.45); ABG PO2 82.6 mmhg (80-100); ABG TCO2 23.3 mmhg (23-27)
[2023-07-20 09:23] LABS: PTT Heparin (inpatient only) 54.2 Seconds (23.6-34.0)
--- NOTE | 2023-07-20 09:27 | EXP.PULM.CON ---
History of Present Illness History of present illness: Mr. Harkins is a 33-year-old male presented to the ER with worsening respiratory distress found to have bilateral diffuse groundglass opacities and pulmonary embolism admitted to the hospital pulmonary was called for further evaluation and management. [facility] Disclaimer: The information contained in this section may have been updated after the patient was seen, as this information can be updated by other users. Medical History (Updated 07/20/23 @ 12:19 by Ryan Arceo MD) Abnormal computerized axial tomography of chest Abnormal Screening Computed Tomography (CT) of Chest Asthma Bronchitis Chest pain Dyspnea on exertion Fungal pneumonia History of smoking 10-25 pack years ILD (interstitial lung disease) Multiple lung nodules on CT Pneumonia due to methicillin resistant Staphylococcus aureus (MRSA) Tachycardia Wheezing without diagnosis of asthma Surgical History No history of previous surgery Family History Other Diabetes Hypertension Social History (Updated 07/19/23 @ 23:16 by Hailey Ramirez RN) Smoking Status: Former smoker smoking status stop date: april 2023 second hand exposure: Yes alcohol intake: former substance use type: marijuana current occupational status: unemployed and other Travel in the last 8 weeks: None household members: spouse and children housing: house Review of Systems Constitutional Constitutional: Reports anorexia, Reports body ache(s) and Reports fatigue Eyes Eyes: Denies eye discharge, Denies dry eyes, Denies irritation and Denies itchy eyes ENT Ears, Nose, Mouth, and Throat: Denies epistaxis, Denies facial pain, Denies lip swelling and Denies throat swelling *Cardiovascular Cardiovascular: Reports dyspnea and Reports dyspnea on exertion *Respiratory Respiratory: Denies change in phlegm color, Reports chest congestion, Reports cough, Reports dyspnea, Reports dyspnea on exertion, Denies excessive phlegm production, Denies hemoptysis, Reports pain on inspiration, Reports pain with cough and Reports wheezing *Gastrointestinal Gastrointestinal: Denies abdominal pain, Denies belching and Denies cramping *Musculoskeletal Musculoskeletal: Denies back pain, Denies myalgias and Reports other (No small joint swelling or Pain) *Neurologic Neurologic: Reports system reviewed and no additional complaints, except as documented Psychiatric Psychiatric: Denies homicidal ideation and Denies suicidal ideation Endocrine Endocrine: Reports fatigue and Denies heat intolerance Hematologic/Lymphatic Hematologic/Lymphatic: Denies easy bleeding and Denies lymphadenopathy Allergic/Immunologic Allergic/Immunologic: Denies itchy eyes, Denies lip swelling, Denies throat swelling and Reports wheezing Pulmonology Exam Inpatient Vital signs and Labs for Last 24 Hours: Temp Pulse Resp BP Pulse Ox O2 Del Method O2 Flow Rate 97.7 F 60 15 99/62 L 99 Nasal Cannula 2 07/20/23 07:35 07/20/23 06:00 07/20/23 06:00 07/20/23 06:00 07/20/23 06:00 07/20/23 06:00 07/20/23 06:00 FiO2 25 07/20/23 00:17 Laboratory Results - last 24 hr 07/19/23 19:46: WBC 14.9 H, RBC 6.18, Hgb 17.7, Hct 54.5 H, MCV 88.2, MCH 28.6, MCHC 32.4, RDW 13.1, Plt Count 237, MPV 8.2, Neut % (Auto) 72.4, Lymph % (Auto) 20.2, [place] % (Auto) 4.9, Eos % (Auto) 1.8, Baso % (Auto) 0.7, Neut # (Auto) 10.8 H, Lymph # (Auto) 3.0, [place] # (Auto) 0.7, Eos # (Auto) 0.3, Baso # (Auto) 0.1, APTT 29.6, Sodium 137, Potassium 4.5, Chloride 100, Carbon Dioxide 28, Anion Gap 13.5, BUN 11, Creatinine 1.30 H, Estimated Creat Clear 94, Estimated GFR 64, Est GFR ( Amer) 77, Glucose 114 H, Calcium 9.3, Total Bilirubin 0.7, AST 39, ALT 19, Alkaline Phosphatase 62, Troponin I < 0.01, NT-Pro-B Natriuret Pep < 20.0, Total Protein 7.8, Albumin 4.0, Globulin 3.8 H, Albumin/Globulin Ratio
[2023-07-20 09:33] LABS: D-Dimer 0.69 ug/mL (0.0-0.5)
--- NOTE | 2023-07-20 10:39 | PC.NURSE ---
pt was on room air when he stood up to the sob to urinate. pt desatted to 85%. pt is back on 2 l nc.
[2023-07-21] VITALS (31 sets, daily range): BP systolic 98–172; BP diastolic 58–102; PULSE 60–106; RESP 15–35; TEMP 36.1–37.1; O2SAT 90–100; BMI 23.8
[2023-07-21 06:28] LABS: Basophils % 0.3 % (0.1-2.0); Eosinophils # 0.4 K/mm3 (0.0-0.4); Eosinophils % 3.3 % (0.1-12.0); Hematocrit 46.5 % (42.0-52.0); Hemoglobin 15.1 g/dL (14.1-18.0); Lymphocytes # 1.5 K/mm3 (0.7-4.5); Lymphocytes % 12.9 % (10-50); Mean Corpuscular HGB Conc 32.5 g/dL (31.8-35.4); Mean Corpuscular Hemoglobin 28.8 pg (27.0-31.2); Mean Corpuscular Volume 88.7 fl (80-94); Mean Platelet Volume 8.8 fl (7.4-10.4); Neutrophils # 8.9 K/mm3 (1.8-7.8); Neutrophils % 75.4 % (37.0-80.0); Platelet Count 165 K/mm3 (142-424); Red Blood Count 5.24 M/mm3 (4.60-6.20); White Blood Count 11.8 K/mm3 (4.8-10.8)
[2023-07-21 06:34] LABS: Alanine Aminotransferase 16 U/L (12-78); Albumin Level 3.4 g/dl (3.5-5.0); Albumin/Globulin Ratio 0.9 (1.1-1.8); Alkaline Phosphatase 56 U/L (38-126); Anion Gap 10.7 mEq/L (5-15); Aspartate Amino Transferase 48 U/L (17-59); Bilirubin,Total 0.5 mg/dl (0.2-1.3); Blood Urea Nitrogen 11 mg/dl (9-20); Calcium 8.5 mg/dl (8.4-10.2); Carbon Dioxide 26 mmol/L (22.0-30.0); Chloride 105 mmol/L (98-107); Creatinine Clearance Estimated 111 mL/min (50-200); Estimated Glomerular Filt Rate 78 ml/min (>60); GFR (African American) 94 ML/MIN (>60); Globulin 3.7 g/dL (1.3-3.2); Glucose 91 mg/dl (74-100); Magnesium 1.7 mg/dl (1.6-2.3); Potassium 4.7 mmoL/L (3.5-5.1); Sodium 137 mmol/L (136-145); Total Protein,Serum 7.1 g/dl (6.3-8.2)
--- NOTE | 2023-07-21 08:02 | EXP.ACUTE.PN ---
Subjective *Date: 07/22/23 *Time: 00:23 Interval history: Patient on 2 L nasal cannula this morning. Alert and oriented x3. Family at bedside. Dyspneic with any type of exertion. Complains of some intermittent pain in his lower neck that radiates up into his face that is worse with coughing or deep breathing. Denies nausea, vomiting, diarrhea, syncope. No fever chills overnight. No acute events since yesterday. Medical Exam Vital signs and Labs for Last 24 Hours: Vital Signs Temp Pulse Pulse Resp BP Pulse Ox O2 Del Method 07/21/23 06:31 Nasal Cannula 07/21/23 06:00 90 20 104/61 L 97 Nasal Cannula 07/21/23 05:00 Nasal Cannula 07/21/23 04:00 100 H 07/21/23 04:00 98.8 F 101 H 21 114/70 96 Nasal Cannula 07/21/23 03:52 98 H 07/21/23 03:52 98 H 07/20/23 23:55 100 Nasal Cannula 07/21/23 03:46 98 Nasal Cannula 07/21/23 02:53 Nasal Cannula 07/21/23 01:00 Nasal Cannula 07/21/23 02:00 98.2 F 79 23 116/61 96 Nasal Cannula 07/21/23 00:00 72 22 101/59 L 96 Nasal Cannula 07/21/23 00:00 90 07/20/23 20:00 80 07/20/23 23:00 Nasal Cannula 07/20/23 22:00 85 22 105/60 L 95 Nasal Cannula 07/20/23 21:00 Nasal Cannula 07/20/23 20:00 97.8 F 89 20 114/64 96 Nasal Cannula 07/20/23 19:40 Nasal Cannula 07/20/23 18:46 Nasal Cannula 07/20/23 17:00 80 20 108/60 L 99 Nasal Cannula 07/20/23 18:00 80 20 105/59 L 94 L Nasal Cannula 07/20/23 17:00 Nasal Cannula 07/20/23 16:00 80 20 108/62 L 99 Nasal Cannula 07/20/23 16:00 81 07/20/23 12:00 86 07/20/23 15:00 97.6 F 78 20 104/59 L 98 Nasal Cannula 07/20/23 12:00 90 18 118/75 98 Nasal Cannula 07/20/23 11:00 74 18 110/67 100 Nasal Cannula 07/20/23 10:00 80 20 117/62 99 Nasal Cannula 07/20/23 09:00 87 20 109/65 L 96 Nasal Cannula 07/20/23 13:00 78 20 110/65 99 Nasal Cannula 07/20/23 15:05 77 97 Nasal Cannula 07/20/23 15:00 Nasal Cannula 07/20/23 13:00 Nasal Cannula 07/20/23 14:00 81 18 111/71 96 Nasal Cannula 07/20/23 09:40 80 99 Nasal Cannula 07/20/23 11:00 Nasal Cannula 07/20/23 09:00 Nasal Cannula 07/20/23 11:06 98.0 F O2 Flow Rate 07/21/23 06:31 2 07/21/23 06:00 2 07/21/23 05:00 2 07/21/23 04:00 07/21/23 04:00 2 07/21/23 03:52 07/21/23 03:52 07/20/23 23:55 2 07/21/23 03:46 2 07/21/23 02:53 2 07/21/23 01:00 2 07/21/23 02:00 2 07/21/23 00:00 2 07/21/23 00:00 07/20/23 20:00 07/20/23 23:00 2 07/20/23 22:00 2 07/20/23 21:00 2 07/20/23 20:00 2 07/20/23 19:40 2 07/20/23 18:46 2 07/20/23 17:00 2 07/20/23 18:00 2 07/20/23 17:00 2 07/20/23 16:00 2 07/20/23 16:00 07/20/23 12:00 07/20/23 15:00 2 07/20/23 12:00 2 07/20/23 11:00 2 07/20/23 10:00 2 07/20/23 09:00 2 07/20/23 13:00 2 07/20/23 15:05 2 07/20/23 15:00 2 07/20/23 13:00 2 07/20/23 14:00 07/20/23 09:40 2 07/20/23 11:00 07/20/23 09:00 2 07/20/23 11:06 Intake and Output 07/20/23 07/21/23 07/21/23 23:59 07:59 15:59 Intake Total 250 / 1700 550 / 550 Output Total 450 / 5050 850 / 850 Balance -200 / -3350 -300 / -300 Intake: Intake, Oral Amount 250 / 750 200 / 200 Infusion Intake 350 / 350 Cefepime HCl 2 gm In 0.9 % 100 / 100 Sodium Chloride 100 ml @ 200 mls/hr IV Q8H SHANNAN Rx#:[id number] Vancomycin/Water For Inj (Peg) 250 / 250 1.25 gm In 250 ml @ 125 mls/hr IV Q12H SHANNAN Rx#:[id number] Output: Output, Urine Amount 450 / 5050 850 / 850 Other: Number of Voids 3 Number of Unmeasured Voids 0 Weight 81.732 kg Patient Weight 07/21/23 23:59 Weight 81.732 kg Laboratory Results - last 24 hr 07/20/23 08:52: ABG pH 7.43, ABG pCO2 34.2 L, ABG pO2 82.6, ABG HCO3 22.3, ABG Total CO2 23.3, ABG O2 [place]
--- NOTE | 2023-07-21 09:46 | EXP.PULM.PN ---
Subjective *Date: 07/21/23 *Time: 11:48 Interval history: No acute respiratory vents overnight. Patient with stable respiratory symptoms with no significant improvement but continued to complain of pleuritic chest pain. Pulmonology Exam Inpatient Vital signs and Labs for Last 24 Hours: Temp Pulse Resp BP Pulse Ox O2 Del Method O2 Flow Rate 98.1 F 88 15 112/60 96 Nasal Cannula 2 07/21/23 08:03 07/21/23 08:00 07/21/23 08:00 07/21/23 08:00 07/21/23 08:00 07/21/23 08:22 07/21/23 08:22 FiO2 25 07/20/23 00:17 Laboratory Results - last 24 hr 07/21/23 05:40: WBC 11.8 H D, RBC 5.24, Hgb 15.1, Hct 46.5, MCV 88.7, MCH 28.8, MCHC 32.5, RDW 13.0, Plt Count 165, MPV 8.8, Neut % (Auto) 75.4, Lymph % (Auto) 12.9, [place] % (Auto) 8.0, Eos % (Auto) 3.3, Baso % (Auto) 0.3, Neut # (Auto) 8.9 H, Lymph # (Auto) 1.5, [place] # (Auto) 1.0, Eos # (Auto) 0.4, Baso # (Auto) 0.0, Sodium 137, Potassium 4.7, Chloride 105, Carbon Dioxide 26, Anion Gap 10.7, BUN 11, Creatinine 1.10, Estimated Creat Clear 111, Estimated GFR 78, Est GFR ( Amer) 94, Glucose 91, Calcium 8.5, Magnesium 1.7, Total Bilirubin 0.5, AST 48, ALT 16, Alkaline Phosphatase 56, Total Protein 7.1, Albumin 3.4 L D, Globulin 3.7 H, Albumin/Globulin Ratio 0.9 L I & O for Labs for Last 24 Hours: Intake & Output 07/18/23 07/19/23 07/20/23 07/21/23 23:59 23:59 23:59 23:59 Intake Total 1150 / 1700 550 / 550 Output Total 4400 / 5050 1300 / 1300 Balance -3250 / -3350 -750 / -750 Weight 178 lb 6 oz 178 lb 6.016 oz 180 lb 3 oz Constitutional: Present moderate distress Head: Present normocephalic and atraumatic ENT: Present normal exam, normal oropharynx and mucous membranes moist Neck: Present normal inspection and full ROM Respiratory: Present respiratory distress and able to speak in complete sentences; Absent prolonged expiratory phase, wheezes or crackles Cardiac: Present S1/S2, Tachycardia and radial pulses present GI: Present soft and distention; Absent tenderness or guarding Skin: Present intact; Absent cyanosis or jaundice Neuro: Present alert, awake and oriented x 3 Extremities: Present normal inspection; Absent clubbing or cyanosis Psychiatric: Present normal affect and cooperative Assessment and Plan *Assessment and plan (1) Acute hypoxemic respiratory failure: Status: Acute Category: Medical Code(s): J96.01 - Acute respiratory failure with hypoxia (2) Pulmonary emboli: Status: Acute Qualifiers: Acute cor pulmonale presence: without acute cor pulmonale Chronicity: acute Pulmonary embolism type: other Qualified Code(s): I26.99 - Other pulmonary embolism without acute cor pulmonale Category: Medical Code(s): I26.99 - Other pulmonary embolism without acute cor pulmonale (3) Acute dyspnea: Status: Acute Category: Medical Code(s): R06.00 - Dyspnea, unspecified (4) Pneumonia due to methicillin resistant Staphylococcus aureus (MRSA): Status: Acute Qualifiers: Laterality: bilateral Lung location: unspecified part of lung Qualified Code(s): J15.212 - Pneumonia due to Methicillin resistant Staphylococcus aureus Category: Medical Code(s): J15.212 - Pneumonia due to Methicillin resistant Staphylococcus aureus (5) Fungal pneumonia: Status: Acute Category: Medical Code(s): J16.8 - Pneumonia due to other specified infectious organisms; B49 - Unspecified mycosis Plan Mr. Harkins is a 33-year-old male presented to the ER with worsening respiratory distress found to have bilateral diffuse groundglass opacities and pulmonary embolism admitted to the hospital pulmonary was called for further evaluation and management. Patient is being managed as noted patient basis for MRSA pneumonia sensitive to Bactrim. CTA from admission reviewed, questionable right lower lobe subsegmental pulmonary embolism. Bilateral diffuse groundglass with subpleural sparing,
--- NOTE | 2023-07-21 11:35 | PC.NURSE ---
pt to OR for bronchoscopy
--- NOTE | 2023-07-21 11:37 | EXP.ANES.CKL ---
[facility] Disclaimer: The information contained in this section may have been updated after the patient was seen, as this information can be updated by other users. Medical History Abnormal computerized axial tomography of chest Abnormal Screening Computed Tomography (CT) of Chest Asthma Bronchitis Chest pain Dyspnea on exertion Fungal pneumonia History of smoking 10-25 pack years ILD (interstitial lung disease) Multiple lung nodules on CT Pneumonia due to methicillin resistant Staphylococcus aureus (MRSA) Tachycardia Wheezing without diagnosis of asthma Surgical History No history of previous surgery Family History Other Diabetes Hypertension Social History Smoking Status: Former smoker smoking status stop date: april 2023 second hand exposure: Yes alcohol intake: former substance use type: marijuana current occupational status: unemployed and other Travel in the last 8 weeks: None household members: spouse and children housing: house [facility] Anesthesia Checklist Patient Identification Patient Identification: Arm Band and Verbal (Name & ) Structural Data Admitted From: Inpatient Planned Operative Procedure/s: Bronchoscopy with bx NPO Status Verified Time NPO: 00:00 Airway Assessment Mallampati Score:: Class I C-Spine Mobility Assessed: Yes TMJ Mobility Assessed: Yes Dentition: Good Dentition Neurological Assessment Level of Consciousness: Awake Hx Seizures: No Numbness or tingling in extremities: No Anesthesia Plan Anesthesia Risk discussed: Yes Anesthesia Plan: Verified ASA Class: III Anesthesia Type: General
--- NOTE | 2023-07-21 13:03 | XR_ITS ---
FINAL REPORT CLINICAL HISTORY: WASHING IN OR, WITH BIOPSY COMPARISON: 07/19/2023 FINDINGS: SINGLE VIEW CHEST The heart is normal in size. The mediastinum is unremarkable. There are patchy bibasilar airspace infiltrates, right greater than left which had increased since prior, may be related to developing pneumonia or edema. There is no pneumothorax. IMPRESSION: Bibasilar airspace infiltrates, may be due to developing pneumonia or edema. Recommend continued follow-up. Reviewed, Interpreted and Dictated by Darryn Garza MD Transcribed by Paola Ash Authenticated and [facility]
--- NOTE | 2023-07-21 13:12 | P.PNANES_ITS ---
[facility] Anesthesia Record Part I Anesthesia Record I Intake, IV Amount: 1,000 Hydration: Adequate Estimated blood loss (mL): 5 Urine output (mL): 0 Blood Pressure: 147/88 SaO2: 94 Pulse Rate: 106 Airway Patency: Patent Respiratory Rate: 32 Temperature: 97.7 F Patient is:: Awake Stable to PACU at:: 13:10
--- NOTE | 2023-07-21 13:12 | EXP.BRONCH.N ---
Procedure: Date: 07/21/23 Patient Date of :: 1990 Procedure Performed:: Bronchoscopy airway examination bronchoalveolar lavage and transbronchial lung biopsy Indications:: Atypical pneumonia Performing Provider:: Ryan Arceo MD Referring Provider:: Dr. Ferraro Sedation:: General anesthesia Procedure:: Bronchoscopy airway examination, bronchoalveolar lavage and transbronchial lung biopsy: A clean DIAGNOSTIC bronchoscopy was advanced through the ET tube and airways were examined up to subsegmental bronchi. Airways appeared grossly normal, no evidence of mucoid secretions, mucous plugging active bleeding/old blood clots noted. Bronchoalveolar lavage was performed in the LEFT LINGULA with instillation of 60 cc normal saline with return of 25 cc clear fluid back. BAL fluid was sent for cell count and differential along with bacterial fungal and AFB stain and cultures. Bronchoalveolar lavage was performed in the RIGHT MIDDLE LOBE with instillation of 60 cc normal saline with return of 30 cc clear fluid back. BAL fluid was sent for cell count and differential along with bacterial fungal and AFB stain and cultures. Transbronchial biopsy was performed in the RIGHT MIDDLE LOBE with a total of 7 biopsies performed, 5 biopsy specimens were sent in formalin for cytopathologic examination. The other 2 biopsy samples, were sent one each in two separate culture medium specimen cups for bacterial fungal and AFB stain cultures. Special request was also made for the pathologist to evaluate for AFB and fungal organisms on the cytopathologic examination. Patient tolerated the procedure with no immediate acute complications. We will follow the patient in pulmonary clinic in 7 to 10 days. Findings:: Please see the procedure note Recommendations:: Postoperative bronchoscopy instructions Follow with final culture results Procedure progress note from today for further recommendations. Complications:: No acute immediate complications Estimated blood obtained (mL): 0
--- NOTE | 2023-07-21 13:18 | XR_ITS ---
FINAL REPORT CLINICAL HISTORY: md order in pacu, postop bronch COMPARISON: 07/19/2023 FINDINGS: CHEST 1 VIEW FRONTAL The heart is normal in size. The mediastinum is unremarkable. There are patchy bibasilar airspace infiltrates, right greater than left which had increased since prior, may be related to developing pneumonia or edema. There is no pneumothorax. IMPRESSION: Bibasilar airspace infiltrates, may be due to developing pneumonia or edema. Recommend continued follow-up Reviewed, Interpreted and Dictated by Darryn Garza MD Transcribed by Paola Ash Authenticated and [facility]
--- NOTE | 2023-07-21 13:45 | PC.NURSE ---
pt back from bronchoscopy
--- NOTE | 2023-07-21 15:10 | PC.NURSE ---
MD Zelaya at bedside stated to let pt have sips of water and if tolerates pt can have diet for dinner
[2023-07-21 20:24] LABS: Vancomycin,Trough 7.2 ug/mL (5.0-10.0)
[2023-07-22] VITALS (11 sets, daily range): BP systolic 98–129; BP diastolic 58–75; PULSE 50–80; RESP 18–22; TEMP 36.1–37; O2SAT 90–97; BMI 23.1
[2023-07-22 00:55] LABS: Vancomycin,Peak 23.9 ug/ml (11-39)
--- NOTE | 2023-07-22 05:31 | PC.NURSE ---
Patient has been stable this shift with no acute changes. Patient will get short of breath with any exertion (going to bathroom, using urinal) and oxygen saturations will drop to 88% recovers quickly. Patients o2 did drop to 88 while sleeping. 1LNC was applied and o2 has been sating >90%. Lung sounds have inspritory wheezing to bilateral bases, bowel sounds active X4, no bm this shift. No complaints at this time. Bedside table, personal belongings, water pitcher and call light all within reach. Mother stayed at bedside. Will continue poc and SD unit protocols.
--- NOTE | 2023-07-22 08:00 | PC.NURSE ---
COURTESY NOTE: pt provided with fresh ice water. pt had no further requests.
[2023-07-22 08:10] LABS: Basophils % 0.1 % (0.1-2.0); Eosinophils % 0.1 % (0.1-12.0); Hematocrit 44.3 % (42.0-52.0); Hemoglobin 14.7 g/dL (14.1-18.0); Lymphocytes # 1.1 K/mm3 (0.7-4.5); Lymphocytes % 13.8 % (10-50); Mean Corpuscular HGB Conc 33.2 g/dL (31.8-35.4); Mean Corpuscular Hemoglobin 28.7 pg (27.0-31.2); Mean Corpuscular Volume 86.4 fl (80-94); Mean Platelet Volume 8.6 fl (7.4-10.4); Monocytes # 0.4 K/mm3 (0.1-1.0); Monocytes % 4.4 % (1.7-9.3); Neutrophils # 6.7 K/mm3 (1.8-7.8); Neutrophils % 81.7 % (37.0-80.0); Platelet Count 166 K/mm3 (142-424); Red Blood Count 5.13 M/mm3 (4.60-6.20); Red Cell Distribution Width 12.7 % (11.5-17.5); White Blood Count 8.2 K/mm3 (4.8-10.8)
[2023-07-22 08:13] LABS: Chloride 108 mmol/L (98-107)
[2023-07-22 08:14] LABS: Potassium 4.7 mmoL/L (3.5-5.1); Sodium 140 mmol/L (136-145)
[2023-07-22 08:16] LABS: Alanine Aminotransferase 16 U/L (12-78); Aspartate Amino Transferase 42 U/L (17-59); Blood Urea Nitrogen 16 mg/dl (9-20); Creatinine Clearance Estimated 132 mL/min (50-200); Estimated Glomerular Filt Rate 98 ml/min (>60); GFR (African American) 118 ML/MIN (>60)
[2023-07-22 08:17] LABS: Albumin Level 3.3 g/dl (3.5-5.0); Albumin/Globulin Ratio 0.9 (1.1-1.8); Alkaline Phosphatase 51 U/L (38-126); Anion Gap 12.7 mEq/L (5-15); Bilirubin,Total 0.2 mg/dl (0.2-1.3); Calcium 8.7 mg/dl (8.4-10.2); Carbon Dioxide 24 mmol/L (22.0-30.0); Globulin 3.5 g/dL (1.3-3.2); Glucose 136 mg/dl (74-100); Total Protein,Serum 6.8 g/dl (6.3-8.2)
--- NOTE | 2023-07-22 09:30 | EXP.PHA.CONS ---
Pharmacy Consult Date: 07/22/23 Time: 09:30 Referring provider: DR KIRK Reason for Consult:: VANCOMYCIN PEAK AND TROUGH LEVEL OBTAINED Allergies Allergy/AdvReac Type Severity Reaction Status Date / Time No Known Allergies Allergy Verified 07/17/23 15:03 Home Medications Medication Instructions Recorded Confirmed Type sulfamethoxazole 800 1 tab PO BID Infection 07/18/23 07/19/23 History mg-trimethoprim 160 mg tablet (Bactrim DS) fluticasone propionate 50 1 spray intranasal BIDP PRN 07/20/23 07/20/23 History mcg/actuation nasal allergy symptoms spray,suspension (Flonase Allergy Relief) ipratropium 0.5 mg-albuterol 3 mg 3 ml inhalation QIDP PRN shortness 07/20/23 07/20/23 History (2.5 mg base)/3 mL nebulization of breath or wheezing soln New Prescriptions to Start Prescriptions: Height: 1.85 m Weight: 79.333 kg Laboratory Results:: Laboratory Results - last 24 hr 07/21/23 19:45: Vancomycin Trough 7.2 07/22/23 00:30: Vancomycin Peak 23.9 07/22/23 06:55: WBC 8.2 D, RBC 5.13, Hgb 14.7, Hct 44.3, MCV 86.4, MCH 28.7, MCHC 33.2, RDW 12.7, Plt Count 166, MPV 8.6, Neut % (Auto) 81.7 H, Lymph % (Auto) 13.8, [place] % (Auto) 4.4, Eos % (Auto) 0.1, Baso % (Auto) 0.1, Neut # (Auto) 6.7, Lymph # (Auto) 1.1, [place] # (Auto) 0.4, Eos # (Auto) 0.0, Baso # (Auto) 0.0, Sodium 140, Potassium 4.7, Chloride 108 H, Carbon Dioxide 24, Anion Gap 12.7, BUN 16 D, Creatinine 0.90, Estimated Creat Clear 132, Estimated GFR 98, Est GFR ( Amer) 118 D, Glucose 136 H, Calcium 8.7, Total Bilirubin 0.2, AST 42, ALT 16, Alkaline Phosphatase 51, Total Protein 6.8, Albumin 3.3 L, Globulin 3.5 H, Albumin/Globulin Ratio 0.9 L Medical History: Medical History (Updated 07/20/23 @ 12:19 by Ryan Arceo MD) Abnormal computerized axial tomography of chest Abnormal Screening Computed Tomography (CT) of Chest Asthma Bronchitis Chest pain Dyspnea on exertion Fungal pneumonia History of smoking 10-25 pack years ILD (interstitial lung disease) Multiple lung nodules on CT Pneumonia due to methicillin resistant Staphylococcus aureus (MRSA) Tachycardia Wheezing without diagnosis of asthma Assessment and Plan Assessment and plan all Dx Assessment and Plan for all problems:: VANCOMYCIN PEAK AND TROUGH LEVELS OBTAINED. RECOMMENDED DOSE AND PREDICTED LEVELS Based on a selected AUC 0-24 of 500 mg?h/liter Recommended dose: 1444 mg Recommended Interval: 12 hrs Predicted peak: 35.0 mcg/ml. Predicted trough: 12.50 mcg/ml. AUC 0-24 /JOSIAH (based on an JOSIAH of 1 mg/L): 533.7 ~Target: 400 - 600. RECOMMENDATION: GIVE VANCOMYCIN IV 1500 mg Q12hrs FINAL VALUES - NEW REGIMEN Predicted PEAK: 34.2 mcg/ml PREDICTED TROUGH: 12.09 mcg/ml AUC 0-24 /JOSIAH Data: JOSIAH 0.5 mcg/mL: AUC/JOSIAH: 1039.0 JOSIAH 1.0 mcg/mL: AUC/JOSIAH: 519.5 JOSIAH 1.5 mcg/mL: AUC/JOSIAH: 346.3
[2023-07-22 09:36] LABS: C-Reactive Protein 10.4 mg/L (0-4)
--- NOTE | 2023-07-22 12:00 | PC.NURSE ---
COURTESY NOTE: pt provided with meal tray and asked if he needed assistance with anything. pt denied needing assistance.
--- NOTE | 2023-07-22 16:07 | EXP.ACUTE.PN ---
Subjective *Date: 07/22/23 *Time: 16:07 Interval history: Patient stable on 1 L nasal cannula oxygen this morning. Afebrile. No nausea or vomiting. No issues since bronchoscopy yesterday. Tolerating p.o. intake. Medical Exam Vital signs and Labs for Last 24 Hours: Vital Signs Temp Pulse Pulse Resp BP Pulse Ox O2 Del Method 07/22/23 15:30 98.6 F 74 18 122/75 93 L Nasal Cannula 07/22/23 13:00 Nasal Cannula 07/22/23 12:01 80 07/22/23 08:00 60 07/22/23 11:13 98.6 F 76 20 129/71 95 Nasal Cannula 07/22/23 08:00 Nasal Cannula 07/22/23 11:00 Nasal Cannula 07/22/23 09:00 Nasal Cannula 07/22/23 08:00 Nasal Cannula 07/22/23 07:54 97.0 F L 68 18 98/64 L 95 Nasal Cannula 07/22/23 04:00 50 L 07/22/23 00:00 90 L Nasal Cannula 07/22/23 06:00 60 22 107/58 L 90 L Nasal Cannula 07/22/23 04:00 97.6 F 57 L 18 112/59 L 96 Nasal Cannula 07/22/23 04:00 55 L 18 112/59 L 96 07/22/23 04:00 97 Room Air 07/22/23 03:00 Nasal Cannula 07/22/23 01:53 63 20 104/63 L 96 Nasal Cannula 07/22/23 00:00 70 07/21/23 20:00 60 07/21/23 23:51 97.7 F 67 18 113/69 90 L Nasal Cannula 07/21/23 23:39 65 18 113/69 97 Room Air 07/21/23 23:00 Nasal Cannula 07/21/23 20:00 96 Room Air 07/21/23 19:00 83 22 115/61 95 Nasal Cannula 07/21/23 20:00 97.4 F L 65 17 100/60 L 93 L Nasal Cannula 07/21/23 18:00 82 21 139/66 90 L Nasal Cannula 07/21/23 18:04 Nasal Cannula 07/21/23 17:00 82 33 H 114/67 95 Nasal Cannula 07/21/23 16:53 97.0 F L 07/21/23 16:30 92 H 32 H 156/68 H 94 L Nasal Cannula 07/21/23 16:51 Nasal Cannula O2 Flow Rate 07/22/23 15:30 07/22/23 13:00 1 07/22/23 12:01 07/22/23 08:00 07/22/23 11:13 07/22/23 08:00 1 07/22/23 11:00 1 07/22/23 09:00 1 07/22/23 08:00 1 07/22/23 07:54 1 07/22/23 04:00 07/22/23 00:00 1 07/22/23 06:00 1 07/22/23 04:00 1 07/22/23 04:00 07/22/23 04:00 1 07/22/23 03:00 1 07/22/23 01:53 1 07/22/23 00:00 07/21/23 20:00 07/21/23 23:51 1 07/21/23 23:39 1 07/21/23 23:00 1 07/21/23 20:00 07/21/23 19:00 1 07/21/23 20:00 1 07/21/23 18:00 1 07/21/23 18:04 1 07/21/23 17:00 1 07/21/23 16:53 07/21/23 16:30 1 07/21/23 16:51 1 Intake and Output 07/22/23 07/22/23 07/22/23 07:59 15:59 23:59 Intake Total 740 / 980 240 / 980 Output Total 1900 / 1900 0 / 1900 Balance -1160 / -920 240 / -920 Intake: Intake, Oral Amount 240 / 480 240 / 480 Intake, Total IV Amount 500 / 500 Doxycycline Hyclate 100 mg In 0 250 / 250 .9 % Sodium Chloride 250 ml @ 166.667 mls/hr IV Q12H [facility] Rx#: [id number] Vancomycin/Water For Inj (Peg) 250 / 250 1.25 gm In 250 ml @ 125 mls/hr IV Q12H [facility] Rx#:[id number] Output: Output, Urine Amount 1900 / 1900 0 / 1900 Other: Number of Unmeasured Voids 0 0 Weight 79.333 kg 79.333 kg Patient Weight 07/22/23 23:59 Weight 79.333 kg Laboratory Results - last 24 hr 07/21/23 05:40: C-Reactive Protein 10.4 H 07/21/23 19:45: Vancomycin Trough 7.2 07/22/23 00:30: Vancomycin Peak 23.9 07/22/23 06:55: WBC 8.2 D, RBC 5.13, Hgb 14.7, Hct 44.3, MCV 86.4, MCH 28.7, MCHC 33.2, RDW 12.7, Plt Count 166, MPV 8.6, Neut % (Auto) 81.7 H, Lymph % (Auto) 13.8, [place] % (Auto) 4.4, Eos % (Auto) 0.1, Baso % (Auto) 0.1, Neut # (Auto) 6.7, Lymph # (Auto) 1.1, [place] # (Auto) 0.4, Eos # (Auto) 0.0, Baso # (Auto) 0.0, Sodium 140, Potassium 4.7, Chloride 108 H, Carbon Dioxide 24, Anion Gap 12.7, BUN 16 D, Creatinine 0.90, Estimated Creat Clear 132, Estimated GFR 98, Est GFR ( Amer) 118 D, Glucose 136 H, Calcium 8.7, Total Bilirubin 0.2, AST 42, ALT 16, Alkaline Phosphatase 51, Total Protein 6.8, Albumin 3.3 L, Globulin 3.5 H, Albumin/Globulin Ratio 0.9 L I & O for Labs for Last 24 Hours:
[2023-07-23] VITALS: BP 108/56; PULSE 62; RESP 18; TEMP 36.6; O2SAT 92
[2023-07-23 04:00] VITALS: BP 108/50; PULSE 69; RESP 18; TEMP 36.4; O2SAT 95; BMI 22.9
[2023-07-23 07:25] LABS: MANUAL DIFFERENTIAL MANUAL DIFFERENTIAL (MANUAL DIFF)
[2023-07-23 07:28] LABS: Basophils % 0.1 % (0.1-2.0); Eosinophils # 0.1 K/mm3 (0.0-0.4); Eosinophils % 0.2 % (0.1-12.0); Hematocrit 44.4 % (42.0-52.0); Hemoglobin 14.5 g/dL (14.1-18.0); Lymphocytes # 1.5 K/mm3 (0.7-4.5); Lymphocytes % 6.8 % (10-50); Mean Corpuscular HGB Conc 32.7 g/dL (31.8-35.4); Mean Corpuscular Hemoglobin 29.1 pg (27.0-31.2); Mean Corpuscular Volume 88.9 fl (80-94); Mean Platelet Volume 8.7 fl (7.4-10.4); Monocytes # 0.8 K/mm3 (0.1-1.0); Monocytes % 3.7 % (1.7-9.3); Neutrophils % 89.3 % (37.0-80.0); Platelet Count 193 K/mm3 (142-424); Red Blood Count 4.99 M/mm3 (4.60-6.20); Red Cell Distribution Width 13.1 % (11.5-17.5); White Blood Count 22.4 K/mm3 (4.8-10.8)
[2023-07-23 07:41] LABS: Alanine Aminotransferase 44 U/L (12-78); Albumin Level 3.4 g/dl (3.5-5.0); Albumin/Globulin Ratio 0.9 (1.1-1.8); Alkaline Phosphatase 53 U/L (38-126); Anion Gap 10.5 mEq/L (5-15); Aspartate Amino Transferase 83 U/L (17-59); Bilirubin,Total 0.2 mg/dl (0.2-1.3); Blood Urea Nitrogen 13 mg/dl (9-20); Calcium 8.9 mg/dl (8.4-10.2); Carbon Dioxide 28 mmol/L (22.0-30.0); Chloride 109 mmol/L (98-107); Creatinine Clearance Estimated 147 mL/min (50-200); Estimated Glomerular Filt Rate 112 ml/min (>60); GFR (African American) 136 ML/MIN (>60); Globulin 3.6 g/dL (1.3-3.2); Glucose 109 mg/dl (74-100); Potassium 4.5 mmoL/L (3.5-5.1); Sodium 143 mmol/L (136-145)
[2023-07-23 07:52] VITALS: BP 123/64; PULSE 68; RESP 18; O2SAT 97
[2023-07-23 08:27] LABS: Lymphocytes % 4 % (10-50); Monocytes % 3 % (2-9); Neutrophils % 93 % (42-76); Total Cells Counted 100
[2023-07-23 08:28] LABS: Platelet Estimate Normal; RBC Morphology Normal
--- NOTE | 2023-07-23 09:35 | EXP.PHA.PN ---
Subjective *Date: 07/23/23 *Time: 09:35 Medical Exam Vital signs and Labs for Last 24 Hours: Vital Signs Temp Pulse Pulse Resp BP Pulse Ox O2 Del Method 07/23/23 07:52 68 18 123/64 97 Nasal Cannula 07/23/23 04:00 97.6 F 69 18 108/50 L 95 Room Air 07/23/23 00:00 97.9 F 62 18 108/56 L 92 L Nasal Cannula 07/23/23 07:00 Nasal Cannula 07/23/23 05:00 Nasal Cannula 07/23/23 03:00 Nasal Cannula 07/23/23 01:00 Nasal Cannula 07/22/23 23:00 Nasal Cannula 07/22/23 21:00 Nasal Cannula 07/22/23 20:00 Nasal Cannula 07/22/23 20:00 97.6 F 65 18 115/58 L 94 L Nasal Cannula 07/22/23 18:17 Nasal Cannula 07/22/23 17:00 Nasal Cannula 07/22/23 15:00 Nasal Cannula 07/22/23 16:27 65 07/22/23 16:27 66 07/22/23 15:30 98.6 F 74 18 122/75 93 L Nasal Cannula 07/22/23 13:00 Nasal Cannula 07/22/23 12:01 80 07/22/23 11:13 98.6 F 76 20 129/71 95 Nasal Cannula 07/22/23 11:00 Nasal Cannula O2 Flow Rate 07/23/23 07:52 1 07/23/23 04:00 07/23/23 00:00 1 07/23/23 07:00 1 07/23/23 05:00 1 07/23/23 03:00 1 07/23/23 01:00 1 07/22/23 23:00 1 07/22/23 21:00 1 07/22/23 20:00 1 07/22/23 20:00 1 07/22/23 18:17 1 07/22/23 17:00 1 07/22/23 15:00 1 07/22/23 16:27 07/22/23 16:27 07/22/23 15:30 07/22/23 13:00 1 07/22/23 12:01 07/22/23 11:13 07/22/23 11:00 1 Intake and Output 07/22/23 07/23/2307/23/23 23:59 07:59 15:59 Intake Total 910 / 910 Output Total 0 1900 300 / 300 Balance 0 / -10 610 / 610 Intake: Intake, Oral Amount 660 / 660 Intake, Total IV Amount 250 / 250 Vancomycin/Water For Inj (Peg) 250 / 250 1.25 gm In 250 ml @ 125 mls/hr IV Q12H [facility] Rx#:[id number] Output: Output, Urine Amount 0 1900 300 / 300 Other: Number of Unmeasured Voids 0 0 Weight 78.642 kg Patient Weight 07/23/23 23:59 Weight 78.642 kg Laboratory Results - last 24 hr 07/21/23 05:40: C-Reactive Protein 10.4 H 07/23/23 07:17: WBC 22.4 H* D, RBC 4.99, Hgb 14.5, Hct 44.4, MCV 88.9, MCH 29.1, MCHC 32.7, RDW 13.1, Plt Count 193, MPV 8.7, Neut % (Auto) 89.3 H, Lymph % (Auto) 6.8 L, [place] % (Auto) 3.7, Eos % (Auto) 0.2, Baso % (Auto) 0.1, Neut # (Auto) 20.0 H, Lymph # (Auto) 1.5, [place] # (Auto) 0.8, Eos # (Auto) 0.1, Baso # (Auto) 0.0, Total Counted 100, Neutrophils % (Manual) 93 H, Lymphocytes % (Manual) 4 L, Monocytes % (Manual) 3, Platelet Estimate Normal, RBC Morphology Normal, Sodium 143, Potassium 4.5, Chloride 109 H, Carbon Dioxide 28, Anion Gap 10.5, BUN 13, Creatinine 0.80, Estimated Creat Clear 147, Estimated GFR 112, Est GFR ( Amer) 136, Glucose 109 H, Calcium 8.9, Total Bilirubin 0.2, AST 83 H D, ALT 44 D, Alkaline Phosphatase 53, Total Protein 7.0, Albumin 3.4 L, Globulin 3.6 H, Albumin/Globulin Ratio 0.9 L I & O for Labs for Last 24 Hours: Intake & Output 07/20/23 07/21/23 07/22/23 07/23/23 23:59 23:59 23:59 23:59 Intake Total 1150 / 1700 2520 / 2520 1340 / 1890 910 / 910 Output Total 4400 / 5050 3400 / 3400 1900 / 1900 300 / 300 Balance -3250 / -3350 -880 / -880 -560 / -10 610 / 610 Weight 80.91 kg 81.732 kg 79.333 kg 78.642 kg Microbiology Reports for the Last 24 Hours: Microbiology 07/21/23 12:43 Transbronchial Biopsy - Right Middle Lobe Surgical Biopsy Culture - Preliminary NO GROWTH AFTER 24 HOURS The patient's infection will respond to the chosen ABx?: Yes (BRONCHIAL WASHINGS PENDING, DOXY FOR PSCITTACOSIS PROPHYLAXIS, AFEBRILE) Is the patient receiving the right drug, dose, and route?: Yes Could a more targeted ABx be ordered?: No
[2023-07-23 09:46] LABS: Basophils % 0.1 % (0.1-2.0); Eosinophils % 0.1 % (0.1-12.0); Hemoglobin 13.9 g/dL (14.1-18.0); Lymphocytes # 1.5 K/mm3 (0.7-4.5); Lymphocytes % 6.4 % (10-50); Mean Corpuscular HGB Conc 33.1 g/dL (31.8-35.4); Mean Corpuscular Hemoglobin 28.9 pg (27.0-31.2); Mean Corpuscular Volume 87.1 fl (80-94); Mean Platelet Volume 8.6 fl (7.4-10.4); Monocytes # 0.9 K/mm3 (0.1-1.0); Neutrophils # 20.5 K/mm3 (1.8-7.8); Neutrophils % 89.4 % (37.0-80.0); Platelet Count 176 K/mm3 (142-424); Red Blood Count 4.82 M/mm3 (4.60-6.20); Red Cell Distribution Width 12.9 % (11.5-17.5); White Blood Count 22.9 K/mm3 (4.8-10.8)
[2023-07-23 09:49] LABS: MANUAL DIFFERENTIAL MANUAL DIFFERENTIAL (MANUAL DIFF)
[2023-07-23 10:21] LABS: Lymphocytes % 5 % (10-50); Monocytes % 3 % (2-9); Neutrophils % 92 % (42-76); Platelet Estimate Normal; RBC Morphology Normal; Total Cells Counted 100
[2023-07-23 11:24] VITALS: BP 130/67; PULSE 66; RESP 72; TEMP 37.2; O2SAT 100
--- NOTE | 2023-07-23 13:24 | EXP.DC.SUM ---
General Admission date:: 07/19/23 Discharge date: 07/23/23 HPI HPI HPI: Is a 33-year-old male presented to the ED with c/o SOA. PMHX of interstitial lung disease and recent diagnosis of MRSA pneumonia. Patient has been seen by Dr. Arceo (Pulmonology) on 07/17/23 and was started on Bactrim and nebulizers. He started having progressively worsening shortness of breath starting yesterday associated with dry, nonproductive cough. No fevers or chills, nausea or vomiting, but has had palpitations. No history of DVT or PE. He is scheduled to see Dr. Arceo this coming Monday for a bronchoscope. His ED workup revealed a leukocytosis of 14.9, HR in the 150's, and hypoxia upon arrival. He was placed on the Bipap and started on Cefepime and Vancomycin. His CT of his chest revealed possible emboli within bibasilar segmental/subsegmental pulmonary arteries and increased diffuse ground-glass opacities with subpleural sparing. The pt was started on heparin gtt and a the ED physician consulted the hospitalist team for further medical management. The patient arrives to the medical floor in step-down. He is resting comfortable on the bipap. He c/o neck pain and sternum pain that has been chronic for four weeks. He is hemodynamically stable and states the bipap is comfortable for him. He will have a pulmonary consult placed for the morning Hospital Course Hospital Course Hospital Course: Mr Harkins is a 33-year-old male presented to the ED with c/o SOA. PMHX of interstitial lung disease and recent diagnosis of MRSA pneumonia. Patient has been seen by Dr. Arceo (Pulmonology) on 07/17/23 and was started on Bactrim and nebulizers. He started having progressively worsening shortness of breath starting yesterday associated with dry, nonproductive cough. No fevers or chills, nausea or vomiting, but has had palpitations. No history of DVT or PE. CT concerning for PEs. Recent sputum culture positive for MRSA on 07/14. Differential diagnosis given patient's exposures includes bird fanciers lung, fungal pneumonia such as histoplasmosis, bacterial pneumonia with MRSA, pneumonitis from smoking (meth, THC, vaping, cigarettes), or other atypical pneumonia. Bronchoscopy performed during admission. Stable on 1 L nasal cannula oxygen. Tolerating antimicrobial therapy. Meeting criteria for discharge home with close follow-up with pulmonology. Problems addressed as follows: SEPSIS PNEUMONIA DUE TO MRSA Interstitial lung disease Fungal pneumonia -Pulmonology consulted, appreciate their recommendations during admission. Was initiated on doxycycline, itraconazole, vancomycin, cefepime. De-escalated given response to oral regimen for discharge home. Plan to continue Bactrim for total of 10 days completing course on 07/29. 5 days of levofloxacin. And 14 total days of itraconazole 200 mg twice daily. Patient requiring oxygen at discharge with room air saturation of 87%. Continue 1 to 2 L as needed. Still awaiting bronchoscopy cultures and urine histo antigen. Patient had elevated beta glucan obtained on 07/14 given strong concern for presentation consistent with histoplasmosis pneumonia as well as MRSA pneumonia given sputum culture results. Patient's white cell count had been stable through most of course but elevated to 22 on day of discharge. Clinically patient was improving. Recommend close follow-up in 1 to 2 days with pulmonology and labs prior to visit. Patient comfortable with plan. PE -CT reviewed and reveals possible emboli within bibasilar segmental/subsegmental pulmonary arteries w/o heart strain. Repeat CT PE performed on day of discharge given inconclusive findings on presentation along with negative CT on 07/14. Repeat CT PE was negative for pulmonary emboli. Discontinue anticoagulation on discharge as there is no indication to continue. Spent 35 minutes in discharge counseling, direct patient care, chart review, discussion of results, and direct care with kate
--- NOTE | 2023-07-23 13:32 | CT_ITS ---
PROCEDURE INFORMATION: Exam: CTA Chest With Contrast Exam date and time: 07/23/2023 2:04 PM Age: 33 years old Clinical indication: Abnormal findings; Abnormal diagnostic tests; Patient HX: Elevated d-dimer of .69. ; Additional info: Pes? ? TECHNIQUE: Imaging protocol: Computed tomographic angiography of the chest with contrast. Exam focused on the arteries. 3D rendering (Not supervised by radiologist): MIP and/or 3D reconstructed images were created by the technologist. Radiation optimization: All CT scans at this facility use at least one of these dose optimization techniques: automated exposure control; mA and/or kV adjustment per patient size (includes targeted exams where dose is matched to clinical indication); or iterative reconstruction. Contrast material: ISOVUE 370; Contrast volume: 75 ml; Contrast route: INTRAVENOUS (IV); REPORTING DATA: Count of CT and Cardiac NM exams in prior 12 months: This patient has received 4 known CTs and 0 known cardiac nuclear medicine studies in the 12 months prior to the current study. COMPARISON: CT ANGIO CHEST PE PROTOCOL 07/19/2023 9:33 PM FINDINGS: Pulmonary arteries: No pulmonary embolism. Aorta: Unremarkable. No aortic aneurysm. No aortic dissection. Lungs: Diffuse bilateral multi lobar ground-glass opacities. Right upper lobe bronchiectasis. Pleural spaces: Unremarkable. No pneumothorax. No pleural effusion. Heart: Unremarkable. No cardiomegaly. No pericardial effusion. Lymph nodes: Unremarkable. No enlarged lymph nodes. Bones/joints: Unremarkable. No acute fracture. Soft tissues: Unremarkable. IMPRESSION: 1. No pulmonary embolism. 2. Diffuse bilateral multi lobar ground-glass opacities. The differential diagnosis is extensive and includes atypical pneumonia, chronic infiltrative lung disease and pulmonary edema. 3. Right upper lobe bronchiectasis.
--- NOTE | 2023-07-23 14:46 | PC.NURSE ---
Addendum entered by Hanh Brian RN 07/23/23 14:50: RA Sat 87% AT REST Original Note: RA sat 87%
[2023-07-23 15:20] VITALS: BP 113/48; PULSE 63; RESP 16; TEMP 36.6; O2SAT 94
[2023-07-23 16:04] LABS: Histoplasma Antibody Quant Negative (Neg:<1:1)
--- NOTE | 2023-07-24 13:07 | CARE MANAGER ---
Called and spoke with patient regarding recent discharge. 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 Arceo's office for a f/u appointment at time of call. No concerns voiced at time of call.
== END 2023-07-23 16:30 | disposition home or self-care (01) | DRG 853 ==
LOC: ER 20:17 → 2ND 22:39
PROVIDERS: Internal Medicine Pulmonary Disease; Nurse Practitioner Critical Care Medicine; Admitting Provider Internal Medicine Adolescent Medicine; Emergency Provider Emergency Medicine; PCP Family Medicine; Visit Provider Internal Medicine Adolescent Medicine
PROC: 0BBD8ZX Excision of Right Middle Lung Lobe, Via Natural or Artificial Opening Endoscopic, Diagnostic (ICD-10-PCS; CPT 31628; principal; 2023-07-21 12:00)
DX: A41.02 Sepsis due to Methicillin resistant Staphylococcus aureus (principal); B59 Pneumocystosis; J15.212 Pneumonia due to Methicillin resistant Staphylococcus aureus; I26.99 Other pulmonary embolism without acute cor pulmonale; J96.21 Acute and chronic respiratory failure with hypoxia; J84.9 Interstitial pulmonary disease, unspecified; N17.9 Acute kidney failure, unspecified; F17.200 Nicotine dependence, unspecified, uncomplicated
CPT/HCPCS: 31628; 31645; 36415; 71045; 71275; 76000; 80048; 80053; 80202; 82803; 83605; 83735; 83880; 84484; 85007; 85014; 85018; 85025; 85048; 85049; 85378; 85730; 86140; 86698; 87040; 87070; 87077; 87081; 87102; 87116; 87186; 87205; 87206; 88112; 88305; 88312; 89051; 93005; 93970; 94640; 94660; 99291; J2405; J3370; J3475; Q9967

== ENCOUNTER → 2023-07-24 11:56 | Outpatient (CLI) | payer OTHER, SELFPAY ==
--- NOTE | 2023-07-24 12:15 | XR_ITS ---
FINAL REPORT CLINICAL HISTORY: [place] FINDINGS: PA and lateral views of the chest are obtained. There is no prior exam for comparison. The cardiac and mediastinal silhouettes are within normal limits. There are bilateral lower lobe opacities concerning for bilateral pneumonia. There is no pleural effusion, pneumothorax, or acute osseous abnormality. IMPRESSION: Bilateral lower lobe opacities concerning for bilateral pneumonia. Reviewed, Interpreted and Dictated by Karissa Santoyo MD Transcribed by Narendra Bishop Authenticated and [facility]
[2023-07-24 12:38] LABS: Basophils % 0.2 % (0.1-2.0); Eosinophils # 0.1 K/mm3 (0.0-0.4); Eosinophils % 0.6 % (0.1-12.0); Hematocrit 44.8 % (42.0-52.0); Hemoglobin 15.1 g/dL (14.1-18.0); Lymphocytes # 1.3 K/mm3 (0.7-4.5); Lymphocytes % 7.9 % (10-50); Mean Corpuscular HGB Conc 33.7 g/dL (31.8-35.4); Mean Corpuscular Hemoglobin 29.3 pg (27.0-31.2); Mean Corpuscular Volume 86.8 fl (80-94); Mean Platelet Volume 8.7 fl (7.4-10.4); Monocytes % 6.6 % (1.7-9.3); Neutrophils # 13.3 K/mm3 (1.8-7.8); Neutrophils % 84.6 % (37.0-80.0); Platelet Count 179 K/mm3 (142-424); Red Blood Count 5.17 M/mm3 (4.60-6.20); Red Cell Distribution Width 12.9 % (11.5-17.5); White Blood Count 15.7 K/mm3 (4.8-10.8)
[2023-07-24 12:39] LABS: MANUAL DIFFERENTIAL MANUAL DIFFERENTIAL (MANUAL DIFF)
[2023-07-24 15:28] LABS: Lymphocytes % 11 % (10-50); Monocytes % 5 % (2-9); Neutrophils % 84 % (42-76); Total Cells Counted 100
[2023-07-24 15:29] LABS: Platelet Estimate Normal; RBC Morphology Normal
[2023-07-26 20:32] LABS: Fungitell(Beta D-Glucan) Serum >500 pg/mL (<80)
== END ==
PROVIDERS: PCP Family Medicine; Visit Provider Internal Medicine Pulmonary Disease
DX: R06.02 Shortness of breath (principal); J45.909 Unspecified asthma, uncomplicated; B44.9 Aspergillosis, unspecified; B59 Pneumocystosis; R50.9 Fever, unspecified; J82.83 Eosinophilic asthma; Z87.891 Personal history of nicotine dependence
CPT/HCPCS: 36415; 71046; 85007; 85025; 86140; 87040; 87449

== ENCOUNTER → 2023-07-25 15:50 | Outpatient (CLI) | payer OTHER, SELFPAY ==
[2023-07-25 17:07] LABS: Lactate Dehydrogenase 871 U/L (313-618)
[2023-07-28 15:04] LABS: HIV 1 Ab Reactive (Non Reactive); HIV 2 Ab Non Reactive (Non Reactive); HIV Screen 4th Generation wRfx Preliminary Reactive (Non Reactive); HIV-1 Ab CHG YES; HIV-2 Ab CHG YES; Interpretation: HIV-1 Positive (.)
== END ==
PROVIDERS: PCP Family Medicine; Visit Provider Internal Medicine Pulmonary Disease
DX: B59 Pneumocystosis (principal)
CPT/HCPCS: 36415; 83615; 86701; 86702; 86703; G0432

== ENCOUNTER → 2023-07-31 15:53 | Outpatient (CLI) | payer OTHER, SELFPAY ==
[2023-07-31 19:44] LABS: Basophils # 0.1 K/mm3 (0-0.2); Basophils % 0.3 % (0.1-2.0); Eosinophils % 0.2 % (0.1-12.0); Hematocrit 45.4 % (42.0-52.0); Hemoglobin 15.2 g/dL (14.1-18.0); Lymphocytes # 1.2 K/mm3 (0.7-4.5); Lymphocytes % 7.5 % (10-50); Mean Corpuscular HGB Conc 33.5 g/dL (31.8-35.4); Mean Corpuscular Hemoglobin 29.6 pg (27.0-31.2); Mean Corpuscular Volume 88.3 fl (80-94); Mean Platelet Volume 9.9 fl (7.4-10.4); Monocytes # 0.8 K/mm3 (0.1-1.0); Monocytes % 4.8 % (1.7-9.3); Neutrophils # 13.9 K/mm3 (1.8-7.8); Neutrophils % 87.2 % (37.0-80.0); Platelet Count 303 K/mm3 (142-424); Red Blood Count 5.14 M/mm3 (4.60-6.20); Red Cell Distribution Width 13.4 % (11.5-17.5)
[2023-07-31 19:52] LABS: MANUAL DIFFERENTIAL MANUAL DIFFERENTIAL (MANUAL DIFF)
[2023-07-31 19:58] LABS: Alanine Aminotransferase 31 U/L (12-78); Albumin Level 3.5 g/dl (3.5-5.0); Albumin/Globulin Ratio 1.2 (1.1-1.8); Alkaline Phosphatase 75 U/L (38-126); Anion Gap 11.8 mEq/L (5-15); Aspartate Amino Transferase 26 U/L (17-59); Bilirubin,Total 0.2 mg/dl (0.2-1.3); Blood Urea Nitrogen 16 mg/dl (9-20); Carbon Dioxide 30 mmol/L (22.0-30.0); Chloride 103 mmol/L (98-107); Estimated Glomerular Filt Rate 87 ml/min (>60); GFR (African American) 105 ML/MIN (>60); Glucose 110 mg/dl (74-100); Potassium 5.8 mmoL/L (3.5-5.1); Sodium 139 mmol/L (136-145); Total Protein,Serum 6.5 g/dl (6.3-8.2)
[2023-07-31 21:24] LABS: Lymphocytes % 12 % (10-50); Monocytes % 4 % (2-9); Myelocytes % 1 (0-1); Neutrophils % 80 % (42-76); Platelet Estimate Normal; RBC Morphology Normal; Total Cells Counted 100
[2023-08-02 14:12] LABS: HCV Ab Non Reactive (Non Reactive)
[2023-08-02 15:11] LABS: % CD4 Positive Lymphs 3.8 % (30.8-58.5); Abs. Basophils 0.1 x10E3/uL (0.0-0.2); Abs. Immature Granulocytes 0.3 x10E3/uL (0.0-0.1); Abs. Lymphocytes 1.2 x10E3/uL (0.7-3.1); Abs. Monocytes 0.8 x10E3/uL (0.1-0.9); Absolute CD4 helper 46 /uL (359-1519); Eosinophils 0 % (Not Estab.); HCT 44.7 % (37.5-51.0); HGB 14.5 g/dL (13.0-17.7); Immature Granulocytes 2 % (Not Estab.); Lymphocytes 8 % (Not Estab.); MCH 29.5 pg (26.6-33.0); MCHC 32.4 g/dL (31.5-35.7); MCV 91 fL (79-97); Monocytes 6 % (Not Estab.); Neutrophils 84 % (Not Estab.); Platelets 257 x10E3/uL (150-450); RBC 4.91 x10E6/uL (4.14-5.80); RDW 13.3 % (11.6-15.4); WBC 14.4 x10E3/uL (3.4-10.8)
[2023-08-03 09:38] LABS: HIV 1 RNA, Real time PCR 560000 copies/mL (.)
[2023-08-03 11:58] LABS: QuantiFERON-TB Gold Plus Negative (Negative)
== END ==
PROVIDERS: PCP Family Medicine; Visit Provider Internal Medicine Pulmonary Disease
DX: B20 Human immunodeficiency virus [HIV] disease (principal); J84.9 Interstitial pulmonary disease, unspecified; J45.909 Unspecified asthma, uncomplicated; R06.09 Other forms of dyspnea; R05.9 Cough, unspecified
CPT/HCPCS: 36415; 80053; 85007; 85025; 86361; 86480; 87536

== ENCOUNTER 2023-08-07 05:58 | Emergency (ER) | payer OTHER, SELFPAY ==
[2023-08-07 05:59] VITALS: BP 130/83; PULSE 95; RESP 22; TEMP 36.9; O2SAT 99; BMI 24.4
--- NOTE | 2023-08-07 06:57 | HMH.EDGENADL ---
Discharge Plan Disposition Patient Disposition: Home, Self-Care Prescriptions Prescriptions: New dapsone 100 mg tablet 100 mg PO DAILY Qty: 30 1RF gabapentin 300 mg capsule 300 mg PO Q8H Qty: 30 1RF lidocaine 5 % adhesive patch,medicated 1 patch topical DAILY PRN (Reason: pain) Qty: 30 0RF Rx Instructions: leave on most painful area for up to 12 hrs No Action Biktarvy 50-200-25 mg tablet 1 tab PO DAILY Qty: 30 2RF sulfamethoxazole-trimethoprim [Bactrim DS] 800-160 mg tablet 1 tab PO BID sulfamethoxazole-trimethoprim [Bactrim DS] 800-160 mg tablet 1 tab PO BID 21 Days Qty: 42 0RF prednisone 20 mg tablet See Rx Instructions .ROUTE .COMPLEX Qty: 45 0RF Rx Instructions: Take 40mg (2 tab) oral twice daily for 5 days followed by 40mg (2 tabs) oral once daily for 5 days followed by 20mg(one tab) oral once daily for 11 days then stop taking prednisone. Referrals Follow up/Referrals: Rolan Hodges MD [Primary Care Provider] - See instructions Activity Restrictions/Add. Instructions Additional Instructions/Restrictions: Please discontinue Bactrim as this may be the cause of your symptoms. Please take dapsone as prescribed for treatment of PCP pneumonia. Please take gabapentin as prescribed as needed for neuropathic pain. Please use lidocaine patches as needed. Please follow-up with your goal umpire if your symptoms worsen or do not improve. Clinical Impressions Clinical Impression: PCP (pneumocystis jiroveci pneumonia), Peripheral neuritis, AIDS (acquired immunodeficiency syndrome), CD4 <=200 HIV (human immunodeficiency virus infection) Qualifiers: HIV symptom status: symptomatic Qualified Code(s): B20 - Human immunodeficiency virus [HIV] disease Discharge ED Provider: Denzel Cooper General Adult HPI General Chief complaint: Extremity Problem,Nontraumatic Stated complaint: leg pain, weakness Time Seen by Provider: 08/07/23 06:00 Mode of Arrival: Wheelchair Source of Information: Patient Limitations: No Limitations Description of Symptoms (Recalled from ER Triage Doc. by RN): pt reports bilateral knee to ankle pain during the night for the last 3 night, reports using lidocaine cream and no help History of Present Illness HPI narrative: 33-year-old male, prior IV drug user, reportedly clean for the last 8 months, recently diagnosed with HIV after coming down with PCP pneumonia, has AIDS with CD4 count 40s, currently on Biktarvy and Bactrim, presents with severe bilateral lower extremity pain for the last couple of days. He reports he is having increased sensitivity and severe pain from the knee down. It is worse at night, lasts for hours. He has never had anything like this before. Reports that he is being treated for PCP pneumonia and is feeling better from that perspective. He reports that he feels like his legs are being run over, reports sharp pains, dull pains, shooting pain. Reports no trauma, no history of blood clots. Related Data Home Medications Medication Instructions Recorded Confirmed sulfamethoxazole 800 1 tab PO BID Infection 07/18/23 07/31/23 mg-trimethoprim 160 mg tablet (Bactrim DS) Previous Rx's Medication Instructions Recorded prednisone 20 mg tablet See Rx Instructions .Route 07/25/23 .COMPLEX #45 tabs sulfamethoxazole 800 1 tab PO BID 21 days #42 tabs 07/25/23 mg-trimethoprim 160 mg tablet (Bactrim DS) bictegravir 50 mg-emtricitabine 1 tab PO DAILY #30 tabs 07/31/23 200 mg-tenofovir alafenam 25 mg tablet (Biktarvy) dapsone 100 mg tablet 100 mg PO DAILY #30 tabs 08/07/23 gabapentin 300 mg capsule 300 mg PO Q8H #30 caps 08/07/23 lidocaine 5 % topical patch 1 patch topical DAILY PRN pain #30 08/07/23 ea Allergies Allergy/AdvReac Type Severity Reaction Status Date / Time No Known Allergies Allergy Verified 07/31/23 15:14 [facility] Disclaimer: The information contained in this section may have been updated
[2023-08-07 06:58] VITALS: BP 127/75; PULSE 85; RESP 20; TEMP 36.7; O2SAT 99
== END 2023-08-07 07:00 | disposition home or self-care (01) ==
PROVIDERS: Emergency Provider Emergency Medicine; PCP Family Medicine
DX: M79.661 Pain in right lower leg (principal); M79.662 Pain in left lower leg; G62.9 Polyneuropathy, unspecified; B59 Pneumocystosis; B20 Human immunodeficiency virus [HIV] disease; J45.909 Unspecified asthma, uncomplicated; J84.9 Interstitial pulmonary disease, unspecified; Z87.891 Personal history of nicotine dependence
CPT/HCPCS: 99283

== ENCOUNTER 2023-11-17 13:59 | Outpatient (CLI) | payer OTHER, SELFPAY ==
[2023-11-17 14:47] LABS: Basophils % 0.4 % (0.1-2.0); Eosinophils # 0.2 K/mm3 (0.0-0.4); Hemoglobin 13.2 g/dL (14.1-18.0); Lymphocytes # 2.5 K/mm3 (0.7-4.5); Lymphocytes % 38.4 % (10-50); Mean Corpuscular HGB Conc 37.8 g/dL (31.8-35.4); Mean Corpuscular Hemoglobin 36.1 pg (27.0-31.2); Mean Corpuscular Volume 95.3 fl (80-94); Mean Platelet Volume 7.7 fl (7.4-10.4); Monocytes # 0.5 K/mm3 (0.1-1.0); Monocytes % 6.9 % (1.7-9.3); Neutrophils # 3.3 K/mm3 (1.8-7.8); Neutrophils % 51.3 % (37.0-80.0); Platelet Count 162 K/mm3 (142-424); Red Blood Count 3.67 M/mm3 (4.60-6.20); White Blood Count 6.5 K/mm3 (4.8-10.8)
[2023-11-22 09:06] LABS: Miscellaneous Test SCANNED IMAGE
== END 2023-11-17 23:59 ==
PROVIDERS: PCP Specialist; Visit Provider Specialist
DX: B20 Human immunodeficiency virus [HIV] disease (principal)
CPT/HCPCS: 36415; 85025